=== PATIENT | male | born 1975 | race Caucasian/White ===

== ENCOUNTER 2022-08-21 16:31 | Emergency (ER) | payer OTHER, SELFPAY ==
[2022-08-21] VITALS (10 sets, daily range): BP systolic 136–152; BP diastolic 81–96; PULSE 54–80; RESP 12–21; TEMP 36.4–36.9; O2SAT 96–99; BMI 29.8
--- NOTE | 2022-08-21 16:36 | DI.RAD.S_ITS ---
PROCEDURE: XR CHEST 1V INDICATIONS: chest pain TECHNIQUE: One view of the chest was acquired. COMPARISON: None. FINDINGS: Surgical changes and devices: Left clavicle plate and screw fixation can be seen. Lungs and pleura: An incomplete inspiratory result is noted, causing a crowded appearance to the lung markings. No focal infiltrates are seen. No pneumothorax or significant pleural effusions are seen. Mediastinum: Mediastinal contours appear normal. Heart size is normal. Bones and chest wall: No suspicious bony lesions. Overlying soft tissues appear unremarkable. IMPRESSION: Limited portable chest examination, without a significant cardiopulmonary abnormality identified. Dictated by: Simón Landers M.D. on 08/21/2022 at 16:06 Approved by: Simón Landers M.D. on 08/21/2022 at 16:06
--- NOTE | 2022-08-21 17:08 | ED_ITS ---
HPI - Chest Pain <JUVE Link - Last Filed: 08/21/22 19:39> General Chief Complaint: Chest Pain Stated Complaint: Chest pain, Dizzy Time Seen by Provider: 08/21/22 16:38 Source: patient and family Mode of arrival: Family Vehicle History of Present Illness HPI narrative: This is a 46-year-old male with history of hypertension but does not have a primary care provider presents to the emergency department complaining of left- sided chest pain, shortness of breath when he awoke from a nap today around 1500 and is associated with dizziness. 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 for hypertension, does not take any other medications, has had upper respiratory cough, congestion for the last 5 days. Denies nausea, vomiting, diaphoresis, fever or chills. States that he had breakfast today, has not had much p.o. intake since then, has had at least 5 double bourbon and cokes since this morning. Patient states that he drinks every day, is a former smoker, states that he has had increased heartburn over the last few days and took Pepcid yesterday. States that he had an episode of emesis 5 days ago which was bilious, states this happened again yesterday after a coughing episode. Patient took 162 mg of aspirin prior to arrival. Patient denies any urinary symptoms, abdominal pain, states that he is had heartburn but no other abdominal pain, some mild constipation with last BM 3 days ago. Related Data Previous Rx's Medication Instructions Recorded omeprazole 20 mg tablet,delayed 40 mg PO DAILY #60 tabs 08/21/22 release Allergies Allergy/AdvReac Type Severity Reaction Status Date / Time No Known Drug Allergies Allergy Verified 08/21/22 16:42 Review of Systems <JUVE Link - Last Filed: 08/21/22 19:39> Review of Systems ROS Unobtainable: All systems reviewed & are unremarkable except as noted in HPI and below Patient History <JUVE Link - Last Filed: 08/21/22 19:39> Social History Smoking Status: Never smoker Smoking Status: Never smoker tobacco type: smokeless tobacco alcohol intake frequency: 0-2 drinks per day Substance Use Type: does not use Exam <JUVE Link - Last Filed: 08/21/22 19:39> Narrative Exam Narrative: Reviewed vitals signs and nursing notes. General: cooperative, comfortable, alert, in no acute distress, well groomed HEENT: symmetrical facial expressions, moist mucous membranes, mildly congestion Cardiovascular: Bradycardic rate with regular rhythm, no peripheral edema, warm extremities, S1-S2 without additional sounds, murmur, gallop or rub Respiratory: normal effort, able to speak in complete sentences, without wheezing, stridor, or abnormal breath sounds. No retractions or tachypnea. GI: abdomen soft, nontender to palpation, nondistended, without masses, rebound tenderness or exquisite tenderness with exam. No tenderness over epigastrium or bilateral flanks MSK: moves all extremities, neurovascularly intact, no weakness, normal tone Skin: brisk capillary refill, without pallor or erythema Neuro: normal speech and cognition, A&O x3, ambulatory, clear speech Psych: mental status is grossly normal, congruent mood, normal affect, pleasant and cooperative Initial Vital Signs Initial Vital Signs: Vital Signs Temperature 98.5 F 08/21/22 16:36 Pulse Rate 59 L 08/21/22 16:36 Respiratory Rate 19 08/21/22 16:36 Blood Pressure 152/88 H 08/21/22 16:36 Pulse Oximetry 99 08/21/22 16:36 Oxygen Delivery Method 08/21/22 16:36 <Parviz Zhang DO - Last Filed: 08/22/22 07:57> Initial Vital Signs Initial Vital Signs: Vital Signs Temperature 98.5 F 08/21/22 16:36 Pulse Rate 59 L 08/21/22 16:36 Respiratory Rate 19 08/21/22 16:36 Blood Pressure 152/88 H 08/21/22 16:36 Pulse Oximetry 99 08/21/22 16:36 Oxygen Delivery Method 08/21/22 16:36 Scores <JUVE Link - Last Filed: 08/21/22 19:39> HEART Score Heart Score history: Moderately Suspicious Heart Score EKG: Normal Heart Score Age: 45-64 years old Heart Score risk factors: 1-2 risk factors PERC Score Age greater than or equal to 50 years: No Heart rate greater than or equal to 100 bpm: No Room Air O2 Sat less than 95%: No Unilateral leg swelling: No Recent trauma or surgery: No Hemoptysis: No Prior PE or DVT: No Hormone Use: No Total PERC Score: 0 Wells' Criteria for PE Clinical signs and symptoms of DVT: No PE is #1 Dx or equally likely: No Heart rate > 100: No Immobilization at least 3 days or surg in previous 4 weeks: No History of PE or DVT: No Hemoptysis: No Malignancy w/Treatment within 6 months or palliative: No Wells' PE Score total: 0 <Parviz Zhang DO - Last Filed: 08/22/22 07:57> PERC Score Total PERC Score: 0 Wells' Criteria for PE Wells' PE Score total: 0 Course <JUVE Link - Last Filed: 08/21/22 19:39> Orders Ordered: Discontinued Medications Aspirin (Aspirin 81 Mg Chew Tab) 324 mg PO NOW ONE Stop: 08/21/22 16:37 Last Admin: 08/21/22 17:25 Dose: Not Given Documented By: AT Aspirin (Aspirin Ec 81 Mg Tablet) 162 mg PO NOW ONE Stop: 08/21/22 17:19 Last Admin: 08/21/22 18:29 Dose: 162 mg Documented By: CTS Al Hydrox/Mg Hydrox/Simethicone 20 ml/ Lidocaine HCl 15 ml 0 ml PO NOW ONE Stop: 08/21/22 17:12 Last Admin: 08/21/22 18:30 Dose: 20 ml Documented By: CTS Pantoprazole Sodium (Pantoprazole 40 Mg Vial) 40 mg IV NOW ONE Stop: 08/21/22 17:12 Last Admin: 08/21/22 18:29 Dose: 40 mg Documented By: CTS Vital Signs Vital signs: Vital Signs - 8 hr 08/21/22 16:36 08/21/22 17:27 08/21/22 17:28 Temperature 98.5 F Pulse Rate 59 L 77 Respiratory Rate 19 14 Blood Pressure 152/88 H 149/85 H Pulse Oximetry 99 98 Oxygen Delivery Method Room Air 08/21/22 17:28 08/21/22 17:30 08/21/22 17:30 Temperature Pulse Rate 61 54 L Respiratory Rate 14 14 Blood Pressure 145/88 H Pulse Oximetry 99 98 Oxygen Delivery Method 08/21/22 18:00 08/21/22 18:01 08/21/22 18:01 Temperature Pulse Rate 61 80 Respiratory Rate Blood Pressure 136/96 H Pulse Oximetry 97 98 Oxygen Delivery Method 08/21/22 18:30 08/21/22 18:30 08/21/22 19:00 Temperature Pulse Rate 54 L Respiratory Rate 12 Blood Pressure 143/81 H 144/83 H Pulse Oximetry 98 Oxygen Delivery Method 08/21/22 19:00 Temperature Pulse Rate 59 L Respiratory Rate 21 Blood Pressure Pulse Oximetry 98 Oxygen Delivery Method <Parviz Zhang DO - Last Filed: 08/22/22 07:57> Orders Ordered: Discontinued Medications Aspirin (Aspirin 81 Mg Chew Tab) 324 mg PO NOW ONE Stop: 08/21/22 16:37 Last Admin: 08/21/22 17:25 Dose: Not Given Documented By: AT Aspirin (Aspirin Ec 81 Mg Tablet) 162 mg PO NOW ONE Stop: 08/21/22 17:19 Last Admin: 08/21/22 18:29 Dose: 162 mg Documented By: CTS Al Hydrox/Mg Hydrox/Simethicone 20 ml/ Lidocaine HCl 15 ml 0 ml PO NOW ONE Stop: 08/21/22 17:12 Last Admin: 08/21/22 18:30 Dose: 20 ml Documented By: LIAM Pantoprazole Sodium (Pantoprazole 40 Mg Vial) 40 mg IV NOW ONE Stop: 08/21/22 17:12 Last Admin: 08/21/22 18:29 Dose: 40 mg Documented By: LIAM Vital Signs Vital signs: Vital Signs - 8 hr 08/21/22 16:36 08/21/22 17:27 08/21/22 17:28 Temperature 98.5 F Pulse Rate 59 L 77 Respiratory Rate 19 14 Blood Pressure 152/88 H 149/85 H Pulse Oximetry 99 98 Oxygen Delivery Method Room Air 08/21/22 17:28 08/21/22 17:30 08/21/22 17:30 Temperature Pulse Rate 61 54 L Respiratory Rate 14 14 Blood Pressure 145/88 H Pulse Oximetry 99 98 Oxygen Delivery Method 08/21/22 18:00 08/21/22 18:01 08/21/22 18:01 Temperature Pulse Rate 61 80 Respiratory Rate Blood Pressure 136/96 H Pulse Oximetry 97 98 Oxygen Delivery Method 08/21/22 18:30 08/21/22 18:30 08/21/22 19:00 Temperature Pulse Rate 54 L Respiratory Rate 12 Blood Pressure 143/81 H 144/83 H Pulse Oximetry 98 Oxygen Delivery Method 08/21/22 19:00 Temperature Pulse Rate 59 L Respiratory Rate 21 Blood Pressure Pulse Oximetry 98 Oxygen Delivery Method MDM - Chest Pain <VERA LinkP - Last Filed: 08/21/22 19:39> Lab Data Result diagrams: 08/21/22 16:56 08/21/22 16:56 Labs: Lab Results 08/21/22 08/21/22 08/21/22 Range/Units 16:56 16:56 16:56 WBC 6.6 (4.5-11.0) X10^3/uL RBC 4.46 L (4.5-5.9) X10^6/uL Hgb 14.8 (13.5-17.5) g/dL Hct 42.9 (41-53) % MCV 96.1 (80-100) fL MCH 33.2 (26-34) PG MCHC 34.6 (30-36) % RDW 13.6 (11.6-14.8) % Plt Count 195 (150-400) X10^3/uL Neut % (Auto) 60.9 (50-75) % Lymph % (Auto) 23.9 L (25-40) % [place] % (Auto) 10.9 (3-14) % Eos % (Auto) 2.8 (2-4) % Baso % (Auto) 1.5 (0-2) % Neut # (Auto) 4000 (6805-9115) /uL Lymph # (Auto) 1600 (0674-3718) /uL [place] # (Auto) 700 (0-900) /uL Eos # (Auto) 200 (0-450) /uL Baso # (Auto) 100 (0-100) /uL PT 10.5 (10.1-12.7) SECONDS INR 0.9 (0.9-1.3) APTT 34 (26-36) SECONDS Sodium 137 (137-145) mmol/L Potassium 4.1 (3.4-5.1) mmol/L Chloride 94 L (98-107) mmol/L Carbon Dioxide 30 (22-32) mmol/L BUN 7 L (9-20) mg/dL Creatinine 0.88 (0.66-1.25) mg/dL Estimated GFR > 60 (>60) mL/min BUN/Creatinine Ratio 8.0 (6-22) Glucose 100 (70-100) mg/dL Calcium 10.2 (8.4-10.2) mg/dL Magnesium 1.8 (1.6-2.3) mg/dL Total Bilirubin 0.4 (0.2-1.3) mg/dL AST 109 H (17-59) IU/L ALT 44 (<50) IU/L Alkaline Phosphatase 82 (38-126) U/L Total Creatine Kinase 125 (55-170) U/L CK-MB (CK-2) 1.36 (<2.37) ng/mL CK-MB (CK-2) Rel Index 1.1 L (1.5-5.0) % Troponin I < 0.012 (0.01-0.034) ng/mL Total Protein 8.7 H (6.3-8.2) g/dL Albumin 4.7 (3.5-5.0) g/dL Globulin 4.0 (1.7-4.1) g/dL Albumin/Globulin Ratio 1.2 (1.0-2.8) Lipase 61 (23-300) U/L Urine Color Urine Appearance Urine pH (4.5-8.0) Ur Specific [place] (1.000-1.035) Urine Protein (Negative) Urine Glucose (UA) (Negative) g/dL Urine Ketones (NEGATIVE) Urine Occult Blood (Negative) Urine Nitrate (Negative) Urine Bilirubin (NEGATIVE) Urine Urobilinogen (0.2) E.U./dL Ur Leukocyte Esterase (NEGATIVE) Urine RBC (0-5/HPF) Urine WBC (0-5/HPF) Ur Squamous Epith Cells (0-5/HPF) Urine Bacteria (None) Ur Culture Indicated? SARS-CoV-2 (PCR) (Negative) Influenza A (RT-PCR) (NEGATIVE) Influenza B (RT-PCR) (NEGATIVE) RSV (PCR) (Negative) 08/21/22 08/21/22 08/21/22 Range/Units 16:56 18:45 18:46 WBC (4.5-11.0) X10^3/uL RBC (4.5-5.9) X10^6/uL Hgb (13.5-17.5) g/dL Hct (41-53) % MCV (80-100) fL MCH (26-34) PG MCHC (30-36) % RDW (11.6-14.8) % Plt Count (150-400) X10^3/uL Neut % (Auto) (50-75) % Lymph % (Auto) (25-40) % [place] % (Auto) (3-14) % Eos % (Auto) (2-4) % Baso % (Auto) (0-2) % Neut # (Auto) (3038-4078) /uL Lymph # (Auto) (5870-0941) /uL [place] # (Auto) (0-900) /uL Eos # (Auto) (0-450) /uL Baso # (Auto) (0-100) /uL PT (10.1-12.7) SECONDS INR (0.9-1.3) APTT (26-36) SECONDS Sodium (137-145) mmol/L Potassium (3.4-5.1) mmol/L Chloride (98-107) mmol/L Carbon Dioxide (22-32) mmol/L BUN (9-20) mg/dL Creatinine (0.66-1.25) mg/dL Estimated GFR (>60) mL/min BUN/Creatinine Ratio (6-22) Glucose (70-100) mg/dL Calcium (8.4-10.2) mg/dL Magnesium (1.6-2.3) mg/dL Total Bilirubin (0.2-1.3) mg/dL AST (17-59) IU/L ALT (<50) IU/L Alkaline Phosphatase (38-126) U/L Total Creatine Kinase (55-170) U/L CK-MB (CK-2) (<2.37) ng/mL CK-MB (CK-2) Rel Index (1.5-5.0) % Troponin I < 0.012 (0.01-0.034) ng/mL Total Protein (6.3-8.2) g/dL Albumin (3.5-5.0) g/dL Globulin (1.7-4.1) g/dL Albumin/Globulin Ratio (1.0-2.8) Lipase (23-300) U/L Urine Color Yellow Urine Appearance Clear Urine pH 7.0 (4.5-8.0) Ur Specific [place] <=1.005 (1.000-1.035) Urine Protein Negative (Negative) Urine Glucose (UA) Negative (Negative) g/dL Urine Ketones Negative (NEGATIVE) Urine Occult Blood Negative (Negative) Urine Nitrate Negative (Negative) Urine Bilirubin Negative (NEGATIVE) Urine Urobilinogen 0.2 (0.2) E.U./dL Ur Leukocyte Esterase Negative (NEGATIVE) Urine RBC None seen (0-5/HPF) Urine WBC None seen (0-5/HPF) Ur Squamous Epith Cells 0-1 /hpf (0-5/HPF) Urine Bacteria None seen (None) Ur Culture Indicated? Cult not indicated SARS-CoV-2 (PCR) Negative (Negative) Influenza A (RT-PCR) Flu a negative (NEGATIVE) Influenza B (RT-PCR) Flu b negative (NEGATIVE) RSV (PCR) Negative (Negative) Imaging Data Chest x-ray: Radiologist's Impression: PROCEDURE:? XR CHEST 1V ? INDICATIONS:? chest pain ? TECHNIQUE:? One view of the chest was acquired.? ? COMPARISON:? None. ? FINDINGS:? ? Surgical changes and devices:? Left clavicle plate and screw fixation can be seen. ? Lungs and pleura:? An incomplete inspiratory result is noted, causing a crowded appearance to the lung markings.? No focal infiltrates are seen.? No pneumothorax or significant pleural effusions are seen. ? ? Mediastinum:? Mediastinal contours appear normal.? Heart size is normal.? ? Bones and chest wall:? No suspicious bony lesions.? Overlying soft tissues appear unremarkable.? IMPRESSION:? ? Limited portable chest examination, without a significant cardiopulmonary abnormality identified.? ? ? Dictated by: Simón Landers M.D. on 08/21/2022 at 16:06 ? ? Approved by: Simón Landers M.D. on 08/21/2022 at 16:06 ? ECG Data Interpretation: EKG independently reviewed by myself at 1645 reveals sinus bradycardia at 59 bpm with regular axis and intervals. No STEMI, ST segment changes, arrhythmia, or acute ischemic changes. EKG independently reviewed by myself at 1847 reveals sinus bradycardia at 56 bpm with regular axis and intervals. No STEMI, ST segment changes, arrhythmia, or acute ischemic changes. MDM Narrative Medical decision making narrative: Independent history provided by patient. This is a 46-year-old male with history of hypertension on losartan who presents to the emergency department complaining of left-sided chest pain and shortness of breath that started after he drank a glass of water when he awoke from a nap today around 1500 and is associated with dizziness. 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 for hypertension, does not take any other medications, has had upper respiratory cough, congestion for the last 5 days. Patient states that he drinks proximally 10 bourbon and Cokes a day, states that he had this today and took a nap, when he woke up, his pain started after he drank a glass of water. Patient has a significant family history of cardiac disease, his father, uncle and grandfather all at a young age due to cardiac arrest. Patient's primary care provider, those have a recent history of heartburn and upper respiratory infection. Differential diagnosis considered include: ACS, PE, aortic dissection, myocarditis, PUD/GERD, costochondritis, pericarditis, CHF, STEMI, NSTEMI, unstable angina, viral syndrome, alcoholic cardiomyopathy, alcoholic gastritis, early repolarization epicardial ischemia, left ventricular hypertrophy, Brugada syndrome, pancreatitis. The patient?s EKG, CMP, CBC, and Troponin and Chest XR ordered to evaluate the patient, GI cocktail, Protonix ordered for patient's symptoms with consideration of gastritis and history of heavy alcohol use for ACS. 1830, went to reassess patient to see how he was feeling after his medications and lab work. Found out that he has not gotten any of his medications, his troponin has not been redrawn, and his repeat EKG has not been completed yet. These were timed for 1800. Phoned lab and discussed with nursing to have these repeated. Patient denies any new symptoms. Nurses giving him his medications now. Repeat EKG without signs of ischemia. I have independently interpreted their EKG which shows sinus bradycardia rate of [address] changes, new arrhythmia, no STEMI, T wave inversions. I have independently reviewed the CXR and there is no mediastinal widening or effusion. Repeat EKG without any changes from previous Pertinent lab findings: No leukocytosis or anemia, mild lymphopenia, no evidence of electrolyte abnormality, initial troponin of 0.12, repeat troponin of 0.012, doubt NSTEMI, lipase of 61. Respiratory panel remains pending. HEART score of 2. PERC score of 0, wells PE 0. Exam without evidence of volume overload, so doubt heart failure. EKG without signs of active ischemia. Review of medical records reveals no recent cardiac testing, cardiac cath, or recent chest imaging. On presentation, patient was without diaphoresis, has symmetric pulses, they are without shortness of breath or abnormal breath sounds. No evidence of pneumothorax on chest x-ray or exam. Pain is not described as tearing through to the back, CXR w/ no evidence of widened mediastinum, normal neuro exam, and equal pulses to bilateral upper and lower extremities; aortic dissection seems very unlikely. Neither clinical presentation, exam, or EKG seem c/w pericarditis or myocarditis. No abdominal pain or tenderness. Rest of labs reviewed and are unremarkable. Patient given aspirin here in the ED, as well as Protonix and GI cocktail with some relief of symptoms. Patient agreeable to plan, no further questions. <Parviz Zhang, - Last Filed: 08/22/22 07:57> Lab Data Labs: Lab Results 08/21/22 08/21/22 08/21/22 Range/Units 16:56 16:56 16:56 WBC 6.6 (4.5-11.0) X10^3/uL RBC 4.46 L (4.5-5.9) X10^6/uL Hgb 14.8 (13.5-17.5) g/dL Hct 42.9 (41-53) % MCV 96.1 (80-100) fL MCH 33.2 (26-34) PG MCHC 34.6 (30-36) % RDW 13.6 (11.6-14.8) % Plt Count 195 (150-400) X10^3/uL Neut % (Auto) 60.9 (50-75) % Lymph % (Auto) 23.9 L (25-40) % [place] % (Auto) 10.9 (3-14) % Eos % (Auto) 2.8 (2-4) % Baso % (Auto) 1.5 (0-2) % Neut # (Auto) 4000 (6943-1374) /uL Lymph # (Auto) 1600 (7549-6695) /uL [place] # (Auto) 700 (0-900) /uL Eos # (Auto) 200 (0-450) /uL Baso # (Auto) 100 (0-100) /uL PT 10.5 (10.1-12.7) SECONDS INR 0.9 (0.9-1.3) APTT 34 (26-36) SECONDS Sodium 137 (137-145) mmol/L Potassium 4.1 (3.4-5.1) mmol/L Chloride 94 L (98-107) mmol/L Carbon Dioxide 30 (22-32) mmol/L BUN 7 L (9-20) mg/dL Creatinine 0.88 (0.66-1.25) mg/dL Estimated GFR > 60 (>60) mL/min BUN/Creatinine Ratio 8.0 (6-22) Glucose 100 (70-100) mg/dL Calcium 10.2 (8.4-10.2) mg/dL Magnesium 1.8 (1.6-2.3) mg/dL Total Bilirubin 0.4 (0.2-1.3) mg/dL AST 109 H (17-59) IU/L ALT 44 (<50) IU/L Alkaline Phosphatase 82 (38-126) U/L Total Creatine Kinase 125 (55-170) U/L CK-MB (CK-2) 1.36 (<2.37) ng/mL CK-MB (CK-2) Rel Index 1.1 L (1.5-5.0) % Troponin I < 0.012 (0.01-0.034) ng/mL Total Protein 8.7 H (6.3-8.2) g/dL Albumin 4.7 (3.5-5.0) g/dL Globulin 4.0 (1.7-4.1) g/dL Albumin/Globulin Ratio 1.2 (1.0-2.8) Lipase 61 (23-300) U/L Urine Color Urine Appearance Urine pH (4.5-8.0) Ur Specific [place] (1.000-1.035) Urine Protein (Negative) Urine Glucose (UA) (Negative) g/dL Urine Ketones (NEGATIVE) Urine Occult Blood (Negative) Urine Nitrate (Negative) Urine Bilirubin (NEGATIVE) Urine Urobilinogen (0.2) E.U./dL Ur Leukocyte Esterase (NEGATIVE) Urine RBC (0-5/HPF) Urine WBC (0-5/HPF) Ur Squamous Epith Cells (0-5/HPF) Urine Bacteria (None) Ur Culture Indicated? SARS-CoV-2 (PCR) (Negative) Influenza A (RT-PCR) (NEGATIVE) Influenza B (RT-PCR) (NEGATIVE) RSV (PCR) (Negative) 08/21/22 08/21/22 08/21/22 Range/Units 16:56 18:45 18:46 WBC (4.5-11.0) X10^3/uL RBC (4.5-5.9) X10^6/uL Hgb (13.5-17.5) g/dL Hct (41-53) % MCV (80-100) fL MCH (26-34) PG MCHC (30-36) % RDW (11.6-14.8) % Plt Count (150-400) X10^3/uL Neut % (Auto) (50-75) % Lymph % (Auto) (25-40) % [place] % (Auto) (3-14) % Eos % (Auto) (2-4) % Baso % (Auto) (0-2) % Neut # (Auto) (5924-9528) /uL Lymph # (Auto) (5771-9599) /uL [place] # (Auto) (0-900) /uL Eos # (Auto) (0-450) /uL Baso # (Auto) (0-100) /uL PT (10.1-12.7) SECONDS INR (0.9-1.3) APTT (26-36) SECONDS Sodium (137-145) mmol/L Potassium (3.4-5.1) mmol/L Chloride (98-107) mmol/L Carbon Dioxide (22-32) mmol/L BUN (9-20) mg/dL Creatinine (0.66-1.25) mg/dL Estimated GFR (>60) mL/min BUN/Creatinine Ratio (6-22) Glucose (70-100) mg/dL Calcium (8.4-10.2) mg/dL Magnesium (1.6-2.3) mg/dL Total Bilirubin (0.2-1.3) mg/dL AST (17-59) IU/L ALT (<50) IU/L Alkaline Phosphatase (38-126) U/L Total Creatine Kinase (55-170) U/L CK-MB (CK-2) (<2.37) ng/mL CK-MB (CK-2) Rel Index (1.5-5.0) % Troponin I < 0.012 (0.01-0.034) ng/mL Total Protein (6.3-8.2) g/dL Albumin (3.5-5.0) g/dL Globulin (1.7-4.1) g/dL Albumin/Globulin Ratio (1.0-2.8) Lipase (23-300) U/L Urine Color Yellow Urine Appearance Clear Urine pH 7.0 (4.5-8.0) Ur Specific [place] <=1.005 (1.000-1.035) Urine Protein Negative (Negative) Urine Glucose (UA) Negative (Negative) g/dL Urine Ketones Negative (NEGATIVE) Urine Occult Blood Negative (Negative) Urine Nitrate Negative (Negative) Urine Bilirubin Negative (NEGATIVE) Urine Urobilinogen 0.2 (0.2) E.U./dL Ur Leukocyte Esterase Negative (NEGATIVE) Urine RBC None seen (0-5/HPF) Urine WBC None seen (0-5/HPF) Ur Squamous Epith Cells 0-1 /hpf (0-5/HPF) Urine Bacteria None seen (None) Ur Culture Indicated? Cult not indicated SARS-CoV-2 (PCR) Negative (Negative) Influenza A (RT-PCR) Flu a negative (NEGATIVE) Influenza B (RT-PCR) Flu b negative (NEGATIVE) RSV (PCR) Negative (Negative) Discharge Plan Departure Patient Disposition: Home Clinical Impression: Upper respiratory infection, viral Chest pain Qualifiers: Chest pain type: unspecified Qualified Code(s): R07.9 - Chest pain, unspecified Gastritis Qualifiers: Gastritis type: unspecified gastritis Chronicity: acute Gastritis bleeding: without bleeding Qualified Code(s): K29.00 - Acute gastritis without bleeding Instructions: Heartburn -- Overview, DI for Chest Pain, GERD Diet Activity Restrictions/Additional Instructions: *You have been diagnosed with chest pain without evidence of ischemia. Your lab work appeared that you might be slightly dehydrated. No evidence any dangerous findings, no evidence of organ injury, kidney disease, or infection. Cardiac workup has come back reassuring, the only thing pending is the respiratory panel testing you for COVID, influenza and RSV. We will call you if this is positive. From an upper respiratory viral standpoint, you should start to get better in the next few days. Please use Zyrtec as needed for congestion, stay hydrated, avoid alcohol an empty stomach, try to eat a healthy diet. If you have worsening heartburn, or it is painful every time you eat or drink something, please follow-up with a primary care provider for further evaluation and continue on the omeprazole 40 mg daily. If your left-sided chest pain is persistent, it could be costochondritis, muscle strain, and it could also be cardiac in nature but does not appear to be today. If you have any worsening symptoms, please come back to the emergency department . You have been evaluated in the emergency department (ED) for chest pain and/or other symptoms that could be signs of a heart attack. The initial test results do NOT indicate that you are currently having a heart attack. ? The evaluation included the following: electrocardiogram (ECG or EKG), blood work including heart muscle enzyme tests (e.g. troponin), chest x-ray, and other tests, as appropriate. ? Your personal risk evaluation is based upon the description of symptoms, your medical history, physical examination and test results. Immediately return to the ED if you experience worsening discomfort in your chest, arms, neck, jaw or back, or you develop other concerning symptoms such as shortness of breath or sweatiness. It is best to call ?911?, in case of emergency, rather than driving yourself to the nearest ED. ? Because the unexpected can occur, and the exact cause of your episode of chest discomfort is not yet known with certainty, it is vital that you call either your own doctor or the doctor we recommend by the next day, to arrange follow-up evaluation and possible further testing, ideally within three days. There is a number in bold listed below to establish care with one of the [facility] primary care physicians. ? Please discuss with your doctor ways to reduce the risk of developing heart disease. In general, these recommendations include healthy diet, regular physical activity, tobacco cessation, managing conditions such as high blood pressure, high cholesterol and diabetes. If you develop worsening chest pain, shortness of breath, or symptoms with physical activity, please come back to the emergency department for another evaluation. In the meantime, care for your stomach with acid inhibitors like omeprazole which has been prescribed for you. Please take this every morning, try to avoid heavy alcohol consumption. Please follow-up with the primary care provider for additional testing if your symptoms persist. If you develop worsening symptoms associated with shortness of breath, lightheadedness, or tearing sensation, please come back like you did today for another evaluation. Okay to use Tums or Maalox to help coat your stomach in the meantime *What to do: *Please continue to take your regular medications as directed. [x ] New medication prescriptions sent to your pharmacy: [ [facility]] [ ] New medication written as a paper prescription [ ] No new medications given *Please follow up with your primary care provider in 2-3 days, call for an appointment. Let them know you were seen in the Emergency Department and that we asked that you be seen for follow-up. We will electronically transmit a record of today's note if your PCP is in our system *If you do not have a primary care provider please contact [phone] to establish care with one of [facility] primary care providers. *Return to Emergency Department if you should have any new, worsening, or concerning symptoms, such as [fever greater than 101F, chills, worsening pain, persistent vomiting or other bothersome symptoms]. Prescriptions: New omeprazole 20 mg tablet,delayed release (DR/EC) 40 mg PO DAILY Qty: 60 3RF Stand Alone Forms: Patient Portal/API <Parviz Zhang DO - Last Filed: 08/22/22 07:57> [facility] ED Attending Mikelature Attestation: I was immediately available in the department for consultation. This doc umentation has been reviewed and I agree with assessment and plan. Supervised by Parviz Zhang DO
[2022-08-21 17:32] LABS: Add Manual Diff / Slide Review NO; Basophils Absolute Auto 100 /uL (0-100); Basophils Percent Auto 1.5 % (0-2); Eosinophils Absolute Auto 200 /uL (0-450); Eosinophils Percent Auto 2.8 % (2-4); Hematocrit 42.9 % (41-53); Hemoglobin 14.8 g/dL (13.5-17.5); Lymphocytes Absolute Auto 1600 /uL (1100-4500); Lymphocytes Percent Auto 23.9 % (25-40); Mean Corpuscular HGB Conc 34.6 % (30-36); Mean Corpuscular Hemoglobin 33.2 PG (26-34); Mean Corpuscular Volume 96.1 fL (80-100); Monocytes Absolute Auto 700 /uL (0-900); Monocytes Percent Auto 10.9 % (3-14); Neutrophils Absolute Auto 4000 /uL (1500-7000); Neutrophils Percent Auto 60.9 % (50-75); Platelet Count 195 X10^3/uL (150-400); Red Blood Cell Count 4.46 X10^6/uL (4.5-5.9); Red Cell Distribution Width 13.6 % (11.6-14.8); White Blood Cell Count 6.6 X10^3/uL (4.5-11.0)
[2022-08-21 17:35] LABS: INR 0.9 (0.9-1.3); Prothrombin Time 10.5 SECONDS (10.1-12.7)
[2022-08-21 17:37] LABS: PTT Partial Thromboplastin Tim 34 SECONDS (26-36)
[2022-08-21 17:40] LABS: Alanine Aminotransferase 44 IU/L (<50); Alkaline Phosphatase 82 U/L (38-126); Aspartate Aminotransferase 109 IU/L (17-59); Bilirubin Total 0.4 mg/dL (0.2-1.3); Blood Urea Nitrogen 7 mg/dL (9-20); Calcium 10.2 mg/dL (8.4-10.2); Carbon Dioxide 30 mmol/L (22-32); Chloride 94 mmol/L (98-107); Creatine Kinase 125 U/L (55-170); Estimated Glomerular Filt Rate > 60 mL/min (>60); Glucose 100 mg/dL (70-100); HEMOLYSIS < 15 (0-50); Lipase 61 U/L (23-300); Magnesium 1.8 mg/dL (1.6-2.3); Potassium 4.1 mmol/L (3.4-5.1); Sodium 137 mmol/L (137-145); Total Protein 8.7 g/dL (6.3-8.2)
[2022-08-21 17:51] LABS: Troponin I < 0.012 ng/mL (0.01-0.034)
[2022-08-21 17:54] LABS: CKMB % Relative Index 1.1 % (1.5-5.0); Creatine Kinase MB 1.36 ng/mL (<2.37)
[2022-08-21] MEDS: ASPIRIN EC 81 MG TABLET 162 MG PO (18:29)
[2022-08-21] MEDS: PANTOPRAZOLE 40 MG VIAL IV (18:29)
[2022-08-21] MEDS: MAG HYDROX/ALUMINUM/SIMETH SUS 20 ML, LIDOCAINE VISCOUS 2% 15 ML PO (18:30)
[2022-08-21 18:33] LABS: Appearance Urine UA CLEAR; Bilirubin Urine UA NEGATIVE (NEGATIVE); Color Urine UA YELLOW; Glucose Urine UA NEGATIVE (Negative); Ketones Urine UA NEGATIVE (NEGATIVE); Leukocyte Esterase Urine UA NEGATIVE (NEGATIVE); Nitrite Urine UA NEGATIVE (Negative); Occult Blood Urine UA NEGATIVE (Negative); Protein Urine UA NEGATIVE (Negative); Specific Gravity Urine UA <=1.005 (1.000-1.035); Urobilinogen Urine UA 0.2 E.U./dL (0.2)
[2022-08-21 18:45] LABS: Bacteria Urine None Seen; Culture Indicated Urine Cult Not Indicated; RBC Urine None Seen (0-5/HPF); Squamous Epithelial Cell Urine 0-1 /HPF (0-5/HPF); WBC Urine None Seen (0-5/HPF)
[2022-08-21 19:19] LABS: Troponin I < 0.012 ng/mL (0.01-0.034)
[2022-08-21 19:51] LABS: Influenza A - CEPHEID Flu A NEGATIVE (NEGATIVE); Influenza B - CEPHEID Flu B NEGATIVE (NEGATIVE); Respiratory Syncytial Virus Negative (Negative)
[2022-08-21 19:56] LABS: COVID-19 CEPHEID 4-PLEX PCR Negative (Negative)
[2022-08-21 21:49] LABS: Albumin 4.7 g/dL (3.5-5.0); Albumin Globulin Ratio 1.2 (1.0-2.8)
== END 2022-08-21 19:48 | disposition home or self-care (01) ==
PROVIDERS: Emergency Medicine; Emergency Provider Nurse Practitioner Critical Care Medicine
DX: R07.9 Chest pain, unspecified (principal); K29.00 Acute gastritis without bleeding; J06.9 Acute upper respiratory infection, unspecified; R06.02 Shortness of breath; Z20.822 Contact with and (suspected) exposure to COVID-19
CPT/HCPCS: 0241U; 36415; 71045; 80053; 81001; 82550; 82553; 83690; 83735; 84484; 85025; 85610; 85730; 93005; 96374; 99284; C9113

== ENCOUNTER 2023-09-04 09:31 | Observation (INO) | payer OTHER, SELFPAY ==
[2023-09-04] VITALS (23 sets, daily range): BP systolic 104–155; BP diastolic 60–96; PULSE 71–93; RESP 10–29; TEMP 36.6–37.4; O2SAT 96–100; BMI 29.5
--- NOTE | 2023-09-04 09:47 | DI.CT.S_ITS ---
PROCEDURE: CT HEAD/BRAIN WO CON INDICATIONS: falls, etoh, syncope TECHNIQUE: Noncontrast 4.5 mm thick angled axial sections acquired from the foramen magnum to the vertex, with coronal and sagittal reformats. For radiation dose reduction, the following was used: automated exposure control, adjustment of mA and/or kV according to patient size. COMPARISON: None. FINDINGS: Image quality: Diagnostic. CSF spaces: Basal cisterns are patent. No extra-axial fluid collections. Ventricles are normal in size and shape. Brain: No midline shift. No intracranial masses or hemorrhage. Lemus-white matter interface is normal. Skull and face: Calvarium and visualized facial bones are intact, without suspicious lesions. Sinuses: Near complete opacification of the visualized portions of the right maxillary sinus. IMPRESSION: 1. No acute intracranial abnormality. 2. Right maxillary sinusitis. Dictated by: Sirman Suarez M.D. on 09/04/2023 at 10:57 Approved by: Simran Suarez M.D. on 09/04/2023 at 10:58
--- NOTE | 2023-09-04 09:47 | DI.CT.S_ITS ---
PROCEDURE: CT CERVICAL SPINE WO CON INDICATIONS: falls, etoh, syncope TECHNIQUE: Noncontrast 3 mm thick sections acquired from the skull base to the T4 level. Sagittal and coronal reformats were then constructed. For radiation dose reduction, the following was used: automated exposure control, adjustment of mA and/or kV according to patient size. COMPARISON: None. FINDINGS: Image quality: Excellent. Bones: No fractures or dislocations. Visualized superior ribs are intact. Soft tissues: Prevertebral soft tissues are normal in thickness. No paravertebral hematomas. No apical pneumothoraces. IMPRESSION: No acute fracture. No osseous lesion. If symptoms and/or clinical suspicion for pathology persist, further assessment MRI or bone scan may be helpful for further assessment. Dictated by: Simran Suarez M.D. on 09/04/2023 at 10:58 Approved by: Simran Suarez M.D. on 09/04/2023 at 10:59
--- NOTE | 2023-09-04 09:51 | DI.RAD.S_ITS ---
PROCEDURE: XR RIBS LT MIN 3V W CXR1V INDICATIONS: fall, rib pain, syncope workup TECHNIQUE: 2 views of the ribs were acquired, along with a single view chest. COMPARISON: None. FINDINGS: Surgical changes and devices: ORIF of the left clavicle. Bones and chest wall: No fractures or dislocations. No suspicious bony lesions. Overlying soft tissues appear unremarkable. Lungs and pleura: No pleural effusions or pneumothorax. Lungs appear clear. Mediastinum: Mediastinal contours appear normal. Heart size is normal. IMPRESSION: No acute fracture. No osseous lesion. If symptoms and/or clinical suspicion for pathology persist, further assessment with repeat, or advanced imaging (e.g., CT, MRI, or bone scan) may be helpful for further assessment. Dictated by: Simran Suarez M.D. on 09/04/2023 at 10:45 Approved by: Simran Suarez M.D. on 09/04/2023 at 10:46
[2023-09-04 09:56] LABS: Add Manual Diff / Slide Review NO; Basophils Absolute Auto 0 /uL (0-100); Basophils Percent Auto 0.6 % (0-2); Eosinophils Absolute Auto 100 /uL (0-450); Eosinophils Percent Auto 1.7 % (2-4); Hematocrit 35.9 % (41-53); Hemoglobin 12.5 g/dL (13.5-17.5); Lymphocytes Absolute Auto 1000 /uL (1100-4500); Lymphocytes Percent Auto 18.4 % (25-40); Mean Corpuscular Volume 97.3 fL (80-100); Monocytes Absolute Auto 800 /uL (0-900); Monocytes Percent Auto 14.1 % (3-14); Neutrophils Absolute Auto 3600 /uL (1500-7000); Neutrophils Percent Auto 65.2 % (50-75); Platelet Count 94 X10^3/uL (150-400); Red Blood Cell Count 3.68 X10^6/uL (4.5-5.9); Red Cell Distribution Width 13.9 % (11.6-14.8); White Blood Cell Count 5.4 X10^3/uL (4.5-11.0)
[2023-09-04] MEDS: SODIUM CHLORIDE 0.9% 1,000 ML 1000 ML IV (10:05)
[2023-09-04 10:07] LABS: Prothrombin Time 10.9 SECONDS (9.4-12.5)
[2023-09-04 10:09] LABS: PTT Partial Thromboplastin Tim 34 SECONDS (25.1-36.5)
[2023-09-04 10:12] LABS: Alanine Aminotransferase 31 IU/L (<50); Albumin 4.6 g/dL (3.5-5.0); Albumin Globulin Ratio 1.1 (1.0-2.8); Alkaline Phosphatase 149 U/L (38-126); Aspartate Aminotransferase 335 IU/L (17-59); BUN Creatinine Ratio 8.9 (6-22); Bilirubin Total 2.4 mg/dL (0.2-1.3); Blood Urea Nitrogen 7 mg/dL (9-20); Calcium 10.4 mg/dL (8.4-10.2); Carbon Dioxide 21 mmol/L (22-32); Chloride 92 mmol/L (98-107); Creatine Kinase 165 U/L (55-170); Estimated Glomerular Filt Rate > 60 mL/min (>60); Globulin 4.1 g/dL (1.7-4.1); Glucose 127 mg/dL (70-100); HEMOLYSIS < 15 (0-50); Lipase 187 U/L (23-300); Potassium 3.1 mmol/L (3.4-5.1); Sodium 131 mmol/L (137-145); Total Protein 8.7 g/dL (6.3-8.2)
[2023-09-04 10:23] LABS: NT-proBNP (BNP-Adult 18+) 23 pg/mL (<125); Troponin I < 0.012 ng/mL (0.01-0.034)
--- NOTE | 2023-09-04 12:48 | ED.SYNCOPE ---
HPI - Syncope General Chief Complaint: Syncope Stated Complaint: sent from [facility] fainting fell t-1 hurt ribs Time Seen by Provider: 09/04/23 09:47 Source: patient, family, RN notes reviewed and old records reviewed Mode of arrival: Family Vehicle Limitations: no limitations History of Present Illness HPI narrative: 48-year-old male with history of hypertension, ETOH abuse who presents with complaint of dizziness and syncopal episode. Patient states he had 3 episodes this past week, the most recent was last night. They were all with standing. To times when he was up urinating with 3rd he was blowing his nose felt unsteady for a 2nd and then started to walk and then passed out or fell. Patient states that were brief episodes. He this week hit his left ribs on the side of a metal can when he fell or passed out and has persistent pain. He states otherwise he denies headaches, denies chest pain other than after hitting his ribs. Denies any shortness of breath. Denies any nausea or vomiting. States he has been constipated last bowel movement was Monday. He has been passing gas. States no melena or hematochezia. No urinary symptoms. No incontinence. He is some chronic paresthesias in his feet for the past year related to a ruptured disc at L4-L5. Patient and family note he has had a decreased appetite. No new swelling in extremities. Patient states he stopped his blood pressure medications when he started getting dizzy. He did start to decrease his alcohol intake was drinking 10 or 12 beers daily and decrease to 5 or 6 daily after being told he was developing liver issues. Over the past week or so he has only been having 3 or 4 daily. Did have a beer this morning. He has prior repair of his collar bone. Is following with [facility] for ruptured disc at L4-L5. Denies any drug allergies. Chews a can of tobacco every other day. Current alcohol intake is 3-4 beers daily, no marijuana or other recreational drugs. Primary care is in [place]. He follows with Dr. Lu with [facility]. He is accompanied by his . Related Data Home Medications Medication Instructions Recorded Confirmed losartan 50 mg tablet 50 mg PO BID 09/04/23 09/04/23 Previous Rx's Medication Instructions Recorded omeprazole 20 mg tablet,delayed 40 mg (2 x 20 mg) PO DAILY #60 tabs 08/21/22 release Allergies Allergy/AdvReac Type Severity Reaction Status Date / Time No Known Drug Allergies Allergy Verified 09/04/23 09:49 Review of Systems Review of Systems ROS Unobtainable: All systems reviewed & are unremarkable except as noted in HPI and below Patient History Social History Smoking Status: Never smoker alcohol intake: current Smoking Status: Never smoker tobacco type: smokeless tobacco alcohol intake frequency: 0-2 drinks per day Substance Use Type: does not use Exam Narrative Exam Narrative: GEN: Patient appears in mild distress. HEAD: No evidence of trauma, no raccoon/Marques sign. NECK: Nontender, painless range of motion, trachea midline Positive Nexus criteria, there is no midline line tenderness, distracting injury, altered mental status, neuro deficit, positive for recent EtOH. EYES: PERRLA, EOMI ENT: External inspection normal, trachea is midline, TM's are normal no hemotypanum, Nares are clear, no septal hematoma, no dental or oral injury, airway is normal and with normal occlusion, No bony tenderness RESP: Chest is tender on the left side of the chest, there is small patches of ecchymosis but no hematoma over the left lower lateral ribs. Patient has symmetric movement, breath sounds are normal no crackles, wheezes or rales CVS: Heart sounds are normal, no murmur noted, No JVD. ABG/GI: Nontender, soft, normal bowel sounds, no distention, no organomegaly, pelvic rock is negative NEURO: Oriented AOx3, neuro is grossly intact, sensation and motor is normal all 4 extremities moving, cranial nerves II through XII are intact, GCS is 15 PSYCH: Normal mood and affect SKIN: Intact, warm and dry, no crepitus and without decubitus BACK: No CVA tenderness, no vertebral tenderness, no step-off's, no crepitus EXT: Atraumatic, hips are nontender, no pedal edema, normal color and temperature, normal range of motion of extremities with normal tendon exam, 2+ pulses in all four extremities Initial Vital Signs Initial Vital Signs: Vital Signs Respiratory Rate 15 09/04/23 09:40 Pulse Oximetry 99 09/04/23 09:40 Scores PERC Score Age greater than or equal to 50 years: No Heart rate greater than or equal to 100 bpm: No Room Air O2 Sat less than 95%: No Unilateral leg swelling: No Recent trauma or surgery: No Hemoptysis: No Prior PE or DVT: No Hormone Use: No Total PERC Score: 0 Course Orders Ordered: ED Orders 09/04/23 09:45 Complete Blood Count AUTO DIFF Stat Comprehensive Metabolic Panel Stat Lipase Stat NT-proBNP (BNP-Adult 18+) Stat PTT Partial Thromboplastin Kei Stat Prothrombin Time INR Stat Troponin & CK Cardiac Panel Stat 09/04/23 09:47 CT cervical spine wo con Stat CT head/brain wo con Stat 09/04/23 09:50 EKG-12 Lead Stat 09/04/23 09:51 XR ribs LT min 3V w CXR1V Stat 09/04/23 12:54 EKG-12 Lead Stat 09/04/23 13:07 Trop I [Troponin I] Stat 09/04/23 13:24 CT angio chest PE protocol Stat Acetaminophen (Acetaminophen 325 Mg Tablet) 650 mg PO Q6H PRN PRN Reason: Fever/Mild Pain (1-3) Clonidine HCl (Clonidine 0.1 Mg Tablet) 0.1 mg PO Q4HR PRN PRN Reason: Alcohol Withdrawal Folic Acid (Folic Acid 1 Mg Tablet) 1 mg PO DAILY [facility] Heparin Sodium (Porcine) (Heparin 5,000 Unit/Ml Vial) 5,000 unit SUBCUT BID MEGAN Dextrose/Sodium Chloride (Dextrose 5%-0.9% Ns) 1,000 mls @ 100 mls/hr IV CONT MEGAN Last Admin: 09/04/23 16:34 Dose: 100 mls/hr Documented By: LDV Lorazepam (Lorazepam 2 Mg/Ml Inj) 0 mg IV CIWAPRN PRN; Protocol PRN Reason: Alcohol Withdrawal Lorazepam (Lorazepam 1 Mg Tablet) 0 mg PO CIWAPRN PRN; Protocol PRN Reason: Alcohol Withdrawal Last Admin: 09/04/23 18:07 Dose: 1 mg Documented By: LDV Multivitamins (Multivitamin 1 Tablet) 1 tab PO DAILY MEGAN Naloxone HCl (Naloxone 0.4 Mg/Ml Vial) 0.2 mg IV Q2MIN PRN PRN Reason: Opiate Reversal Oxycodone HCl (Oxycodone Ir 5 Mg Tablet) 5 mg PO Q3H PRN PRN Reason: Pain, Moderate (4-6) Last Admin: 09/04/23 16:34 Dose: 5 mg Documented By: MARTHA Sennosides (Sennosides 8.6 Mg Tablet) 17.2 mg PO BEDTIME MEGAN Thiamine HCl (Thiamine 100 Mg Tablet) 100 mg PO DAILY MEGAN Stop: 09/08/23 09:01 Discontinued Medications Sodium Chloride (Normal Saline 0.9%) 1,000 mls @ 1,000 mls/hr IV BOLUS ONE Stop: 09/04/23 10:46 Last Infusion: 09/04/23 13:02 Dose: Infused Documented By: Admin: 09/04/23 10:05 Dose: 1,000 mls/hr Documented By: MALDONADO Ketorolac Tromethamine (Ketorolac 30 Mg/Ml Vial) 15 mg IV NOW ONE Stop: 09/04/23 13:25 Last Admin: 09/04/23 13:29 Dose: 15 mg Documented By: RAJNI Potassium Chloride (Potassium Chloride 20 Meq Tab) 40 meq PO NOW ONE Stop: 09/04/23 13:25 Last Admin: 09/04/23 13:29 Dose: 40 meq Documented By: RAJNI Potassium Chloride (Potassium Chloride 20 Meq Tab) 40 meq PO NOW ONE Stop: 09/04/23 16:17 Last Admin: 09/04/23 16:34 Dose: 40 meq Documented By: MARTHA Vital Signs Vital signs: Vital Signs - 8 hr 09/04/23 11:00 09/04/23 11:00 09/04/23 11:30 Pulse Rate 80 78 Respiratory Rate 29 H 13 Blood Pressure 109/60 Pulse Oximetry 99 97 09/04/23 11:31 09/04/23 11:31 09/04/23 12:00 Pulse Rate 79 Respiratory Rate 13 Blood Pressure 138/60 117/65 Pulse Oximetry 97 09/04/23 12:00 09/04/23 12:30 09/04/23 12:30 Pulse Rate 90 84 Respiratory Rate 17 19 Blood Pressure 120/81 Pulse Oximetry 100 99 09/04/23 13:00 09/04/23 13:01 09/04/23 13:01 Pulse Rate 87 88 Respiratory Rate 26 H 18 Blood Pressure 126/92 H Pulse Oximetry 100 100 09/04/23 13:30 09/04/23 13:30 09/04/23 13:47 Pulse Rate 71 79 Respiratory Rate 11 L Blood Pressure 138/87 Pulse Oximetry 100 97 09/04/23 13:47 09/04/23 14:00 09/04/23 14:00 Pulse Rate 77 Respiratory Rate 15 Blood Pressure 129/78 126/69 Pulse Oximetry 100 MDM - Syncope Lab Data 09/04/23 09:45 09/04/23 09:45 Labs: Lab Results 09/04/23 09/04/23 Range/Units 09:45 13:07 WBC 5.4 (4.5-11.0) X10^3/uL RBC 3.68 L (4.5-5.9) X10^6/uL Hgb 12.5 L (13.5-17.5) g/dL Hct 35.9 L (41-53) % MCV 97.3 (80-100) fL MCH 34.0 (26-34) PG MCHC 35.0 (30-36) % RDW 13.9 (11.6-14.8) % Plt Count 94 L (150-400) X10^3/uL Neut % (Auto) 65.2 (50-75) % Lymph % (Auto) 18.4 L (25-40) % Ceiba % (Auto) 14.1 H (3-14) % Eos % (Auto) 1.7 L (2-4) % Baso % (Auto) 0.6 (0-2) % Neut # (Auto) 3600 (7972-3274) /uL Lymph # (Auto) 1000 L (1598-4311) /uL Ceiba # (Auto) 800 (0-900) /uL Eos # (Auto) 100 (0-450) /uL Baso # (Auto) 0 (0-100) /uL PT 10.9 (9.4-12.5) SECONDS INR 1.0 (0.9-1.3) APTT 34 (25.1-36.5) SECONDS Sodium 131 L (137-145) mmol/L Potassium 3.1 L (3.4-5.1) mmol/L Chloride 92 L (98-107) mmol/L Carbon Dioxide 21 L (22-32) mmol/L BUN 7 L (9-20) mg/dL Creatinine 0.79 (0.66-1.25) mg/dL Estimated GFR > 60 (>60) mL/min BUN/Creatinine Ratio 8.9 (6-22) Glucose 127 H (70-100) mg/dL Calcium 10.4 H (8.4-10.2) mg/dL Phosphorus 3.6 (2.5-4.5) mg/dL Total Bilirubin 2.4 H (0.2-1.3) mg/dL AST 335 H (17-59) IU/L ALT 31 (<50) IU/L Alkaline Phosphatase 149 H (38-126) U/L Total Creatine Kinase 165 (55-170) U/L Troponin I < 0.012 < 0.012 (0.01-0.034) ng/mL NT-Pro-B Natriuret Pep 23 (<125) pg/mL Total Protein 8.7 H (6.3-8.2) g/dL Albumin 4.6 (3.5-5.0) g/dL Globulin 4.1 (1.7-4.1) g/dL Albumin/Globulin Ratio 1.1 (1.0-2.8) Lipase 187 (23-300) U/L Imaging Data CT scan - head: Radiologist's Impression: Chris Lo??48??M??1975 ? Allergy/Adv: No Known Drug Allergies Close Ribs X-Ray (Signed) Simran Suarez - 09/04/23 Ribs X-Ray (Cancelled) 09/04/[address] (Signed) Simran Suarez - 09/04/[address] (Signed) Simran Suarez - 09/04/23 Chest X-Ray (Signed) Simón Landers - 08/21/22 [place] [address] CT Scan Report Signed Patient: Chris Lo MR#: [id number] : 1975 Acct:[id number] Age/Sex: 48 / M Date of Service: 09/04/23 Loc: ED Accession Number: [id number] Procedure: CT head/brain wo con Ordering Provider: Kina Suarez D.O. PROCEDURE: CT HEAD/BRAIN WO CON INDICATIONS: falls, etoh, syncope TECHNIQUE: Noncontrast 4.5 mm thick angled axial sections acquired from the foramen magnum to the vertex, with coronal and sagittal reformats. For radiation dose reduction, the following was used: automated exposure control, adjustment of mA and/or kV according to patient size. COMPARISON: None. FINDINGS: Image quality: Diagnostic. CSF spaces: Basal cisterns are patent. No extra-axial fluid collections. Ventricles are normal in size and shape. Brain: No midline shift. No intracranial masses or hemorrhage. Lemus-white matter interface is normal. Skull and face: Calvarium and visualized facial bones are intact, without suspicious lesions. Sinuses: Near complete opacification of the visualized portions of the right maxillary sinus. IMPRESSION: 1. No acute intracranial abnormality. 2. Right maxillary sinusitis. Dictated by: Simran Suarez M.D. on 09/04/2023 at 10:57 Approved by: Simran Suarez M.D. on 09/04/2023 at 10:58 CT - cervical spine: Radiologist's Impression: [place] [address] CT Scan Report Signed Patient: Chris Lo MR#: [id number] : 1975 Acct:[id number] Age/Sex: 48 / M Date of Service: 09/04/23 Loc: ED Accession Number: [id number] Procedure: CT cervical spine wo con Ordering Provider: Kina Suarez D.O. PROCEDURE: CT CERVICAL SPINE WO CON INDICATIONS: falls, etoh, syncope TECHNIQUE: Noncontrast 3 mm thick sections acquired from the skull base to the T4 level. Sagittal and coronal reformats were then constructed. For radiation dose reduction, the following was used: automated exposure control, adjustment of mA and/or kV according to patient size. COMPARISON: None. FINDINGS: Image quality: Excellent. Bones: No fractures or dislocations. Visualized superior ribs are intact. Soft tissues: Prevertebral soft tissues are normal in thickness. No paravertebral hematomas. No apical pneumothoraces. IMPRESSION: No acute fracture. No osseous lesion. If symptoms and/or clinical suspicion for pathology persist, further assessment MRI or bone scan may be helpful for further assessment. Dictated by: Simran Suarez M.D. on 09/04/2023 at 10:58 Approved by: Simran Suarez M.D. on 09/04/2023 at 10:59 Chest x-ray: Radiologist's Impression: Close Ribs X-Ray (Signed) Simran Suarez - 09/04/23 Ribs X-Ray (Cancelled) 09/04/[address] (Signed) Simran Suarez - 09/04/[address] (Signed) Simran Suarez - 09/04/23 Chest X-Ray (Signed) Simón Landers - 08/21/[address] [address] XRay Report Signed Patient: Chris Lo MR#: [id number] : 1975 Acct:[id number] Age/Sex: 48 / M Date of Service: 09/04/23 Loc: ED Accession Number: [id number] Procedure: XR ribs LT min 3V w CXR1V Ordering Provider: Kina Suarez D.O. PROCEDURE: XR RIBS LT MIN 3V W CXR1V INDICATIONS: fall, rib pain, syncope workup TECHNIQUE: 2 views of the ribs were acquired, along with a single view chest. COMPARISON: None. FINDINGS: Surgical changes and devices: ORIF of the left clavicle. Bones and chest wall: No fractures or dislocations. No suspicious bony lesions. Overlying soft tissues appear unremarkable. Lungs and pleura: No pleural effusions or pneumothorax. Lungs appear clear. Mediastinum: Mediastinal contours appear normal. Heart size is normal. IMPRESSION: No acute fracture. No osseous lesion. If symptoms and/or clinical suspicion for pathology persist, further assessment with repeat, or advanced imaging (e.g., CT, MRI, or bone scan) may be helpful for further assessment. Dictated by: Simran Suarez M.D. on 09/04/2023 at 10:45 Approved by: Simran Suarez M.D. on 09/04/2023 at 10:46 CT scan - chest: Radiologist's Impression: Close Chest X-Ray (Signed) Simran Suarez - 09/04/23 Echocardiogram Ultrasound (Signed) Joellen Patel - 02/22/23 Chest/Abdomen X-ray (Signed) Riley Peck - 08/29/22 Radiology Report (Cancelled) Nilson Cisse - 01/26/22 Myocardial Perfusion Scan Nuc Med (Signed) Nilson Cisse - 01/26/22 Mammogram Diagnostic (Signed) Jean Heart - 01/14/22 Echocardiogram Ultrasound (Signed) Joellen Patel - 12/03/21 Telemetry Strips 10/29/21 Echocardiogram Ultrasound (Signed) Joellen Patel - 11/10/20 Echocardiogram Ultrasound (Signed) Joellen Patel - 09/23/19 Chest X-Ray (Signed) ReneIsidro - 08/23/19 Chest X-Ray (Signed) JasonAntonella - 09/23/18 Telemetry Strips 09/23/18 Telemetry Strips 08/09/18 Echocardiogram Ultrasound (Signed) Joellen Patel - 08/09/18 Chest X-Ray (Signed) Alexander John - 08/09/18 [address] [address] XRay Report Signed Patient: Nolan Garcia MR#: [id number] : 01/06/1951 Acct:[id number] Age/Sex: 72 / M Date of Service: 09/04/23 Loc: ED Accession Number: [id number] Procedure: XR chest 1V Ordering Provider: Kina Suarez D.O. PROCEDURE: XR CHEST 1V INDICATIONS: chest pain TECHNIQUE: One view of the chest was acquired. COMPARISON: [facility], , XR CHEST 2V, 08/23/2019, 13:55. FINDINGS: Surgical changes and devices: Median sternotomy. Lungs and pleura: Lungs are clear. No pleural effusions or pneumothorax. Mediastinum: Mediastinal contours appear normal. Heart size is enlarged. Bones and chest wall: No suspicious bony lesions. Overlying soft tissues appear unremarkable. IMPRESSION: Cardiomegaly. No acute process. Dictated by: Simran Suarez M.D. on 09/04/2023 at 11:23 Approved by: Simran Suarez M.D. on 09/04/2023 at 11:24 ECG Data Attestation: I personally reviewed and interpreted this ECG as follows: Prior ECG tracings: available for review Interpretation: Sinus rhythm rate 87 OH 138 QRS is 78 QTC 462. Patient does have Q-wave changes with T-wave inversion and depression of the ST segments in lateral leads. No elevation clearly appreciate a questionable in AVR. Patient has prior from 08/21/2022 which does not show this. EKG 2. Shows sinus rhythm rate of 77 OH 138 QRS 88 QTC 459. T-wave changes in lateral leads nose appreciated in other leads. Present on prior EKGs from today as well. MDM Narrative Medical decision making narrative: 48-year-old male with recurrent syncopal episode/dizziness and falls over the past week. Patient and family describe that it typically happens when he is standing and Valsalva such as with micturition or when he blew his nose. He has had 1 prior set of episodes in the past. He denies chest pain or shortness of breath except he hit his chest when he fell or passed out. Labs show hemoglobin of 12.5, was 14 a year ago hematocrit is 35 white count is 5.4 with a platelet count of 94. Monocytes are elevated. Coags are negative. Patient's potassium slightly low at 3.1 with a sodium of 131 otherwise normal renal function and BUN. Glucose is 127. Calcium 10.4. LFTs are elevated at 2.4 with an AST of 335 and ALT of 31 with alk-phos of 149. Patient states he has been told his LFTs are elevated in the past he does not know where they are normally at. Troponins negative. Head CT was negative as well as C-spine, this was obtained patient states he did not think he hit his head but has been drinking as of this morning. Negative for obvious rib fractures on chest x-ray but may have some nondisplaced fractures he is quite tender in the left lower lateral ribs. Patient was given a L of fluids, oral potassium replacement, patient has some chronic back pain so was given dose of Toradol. He does have what appears to be some new EKG changes from prior from a year ago. 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 notes he is still sits around the house quite a bit so does have somewhat elevated risk for blood clot. Discussed with patient family they are agreeable to CT angio. This shows no PE, some esophageal thickening, hepatic steatosis and coronary artery disease. No pericardial effusion. Troponin was also repeated and is negative. No dynamic EKG changes but still present. Patient has recurrent moderate described syncopal episodes in the setting of new EKG change. Patient's troponins are negative. Does show some coronary calcification, but concerning would like to keep patient for echo. Spoke with Dr. Ortiz hospitalist who accepts for observation. Discharge Plan Departure Patient Disposition: Admitted as Observation Clinical Impression: Syncope Admit Date/Time: 09/04/23 14:24 Admit Provider: Kunal Ortiz
--- NOTE | 2023-09-04 13:24 | DI.CT.S_ITS ---
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 3-dimensional maximum intensity projection (MIP) coronal and sagittal reformats were then acquired through the thorax. For radiation dose reduction, the following was used: automated exposure control, adjustment of mA and/or kV according to patient size. COMPARISON: None. FINDINGS: Image quality: Diagnostic. Pulmonary arteries: Pulmonary arteries are normal in size, and demonstrate no intraluminal filling defects to suggest central pulmonary embolism. Lower Neck: No enlarged lymph nodes. Thyroid: No thyroid nodules which require sonographic follow up, per consensus guidelines. Axillae: No enlarged lymph nodes. Chest Wall: Unremarkable. Bones: Unremarkable. Lungs and Pleura: No pneumothorax or pleural effusions. No consolidation or suspicious nodules. Heart: Heart size is normal. Calcification of the coronary vasculature is present. No pericardial effusion. Thoracic Vessels: No aortic aneurysm. Mediastinum and Erin: No enlarged lymph nodes. Esophagus: Thickening of the distal esophagus is present.. Upper Abdomen: Diffusely decreased hepatic density. IMPRESSION: 1. Distal esophageal thickening. Differential considerations include infection, inflammation, and neoplasm. Initial further assessment with endoscopy is recommended. 2. No pulmonary embolus. 3. Hepatic steatosis. 4. Coronary artery disease. Dictated by: Simran Suarez M.D. on 09/04/2023 at 14:05 Approved by: Simran Suarez M.D. on 09/04/2023 at 14:11
[2023-09-04] MEDS: POTASSIUM CHLORIDE 20 MEQ TAB 40 MEQ PO ×2 (13:29→16:34)
[2023-09-04] MEDS: KETOROLAC 30 MG/ML VIAL 15 MG IV (13:29)
[2023-09-04 13:43] LABS: Troponin I < 0.012 ng/mL (0.01-0.034)
--- NOTE | 2023-09-04 15:14 | PM.HP.1 ---
History of Present Illness History of Present Illness Date Patient Seen: 09/04/23 Time Patient Seen: 15:14 Chief complaint: sent from [facility] fainting fell t-1 hurt ribs Narrative: The patient is a 48-year-old male with a history of hypertension and alcohol abuse who presents with 3 days' history of dizziness and feeling lightheaded. His last episode of nearly falling out over was last evening. The patient denies any episodes of complete syncope. He has been somewhat constipated recently and presents for evaluation. In the ED he was found to have a history of alcohol abuse drinking up to 10 drinks a day with a recent cut back to 5 or 6 a day. In addition he was found to have an abnormal ECG. The patient has no known history of CAD and denies any chest pain or palpitations. He had a normal troponin. Last night he had a syncopal episode and fell injuring his left anterior chest. He has pain with moving or pressing on the left anterior lateral lower rib. He denies any pleuritic pain. No nausea. He describes a least 3 complete syncopal episodes in the last week. He has a strong family history of heart disease with his father having of cardiac arrest under the age of [address] scan today ruled out pulmonary embolism but was positive for coronary artery calcifications. He also has distal esophagus thickening which is nonspecific. The patient denies any dysphagia. He does drink on a daily basis but has been cutting back. His doctor noted evidence of hepatitis on liver function tests. He does get shaky if he does not drink. He denies a history of alcohol withdrawal seizures. No clear orthostatic symptoms. He denies chest pain or dyspnea with exertion. He does have chronic lower back pain owing to a chronic lower back injury. [facility] Social History Smoking Status: Never smoker Meds Home Medications and Allergies Home Medications Medication Instructions Recorded Confirmed Type omeprazole 20 mg tablet,delayed 40 mg (2 x 20 mg) PO DAILY #60 tabs 08/21/22 Rx release Allergies Allergy/AdvReac Type Severity Reaction Status Date / Time No Known Drug Allergies Allergy Verified 09/04/23 09:49 Review of Systems Review of Systems Narrative: All else reviewed and otherwise unremarkable except as noted in the history and physical. Exam Vital Signs (past 8 hours): - 09/04/23 09:40 09/04/23 09:41 09/04/23 09:41 Temperature Pulse Rate 93 H Respiratory Rate 15 10 L Blood Pressure 122/73 Pulse Oximetry 99 99 Oxygen Delivery Method 09/04/23 09:44 09/04/23 10:00 09/04/23 10:00 Temperature 98 F Pulse Rate 86 73 Respiratory Rate 16 13 Blood Pressure 122/73 134/88 Pulse Oximetry 99 98 Oxygen Delivery Method Room Air 09/04/23 10:10 09/04/23 10:10 09/04/23 10:30 Temperature Pulse Rate 88 77 Respiratory Rate 17 17 Blood Pressure 104/63 Pulse Oximetry 100 100 Oxygen Delivery Method 09/04/23 10:30 09/04/23 10:40 09/04/23 10:40 Temperature Pulse Rate 77 Respiratory Rate 27 H Blood Pressure 109/60 107/60 Pulse Oximetry 98 Oxygen Delivery Method 09/04/23 11:00 09/04/23 11:00 09/04/23 11:30 Temperature Pulse Rate 80 78 Respiratory Rate 29 H 13 Blood Pressure 109/60 Pulse Oximetry 99 97 Oxygen Delivery Method 09/04/23 11:31 09/04/23 11:31 09/04/23 12:00 Temperature Pulse Rate 79 Respiratory Rate 13 Blood Pressure 138/60 117/65 Pulse Oximetry 97 Oxygen Delivery Method 09/04/23 12:00 09/04/23 12:30 09/04/23 12:30 Temperature Pulse Rate 90 84 Respiratory Rate 17 19 Blood Pressure 120/81 Pulse Oximetry 100 99 Oxygen Delivery Method 09/04/23 13:00 09/04/23 13:01 09/04/23 13:01 Temperature Pulse Rate 87 88 Respiratory Rate 26 H 18 Blood Pressure 126/92 H Pulse Oximetry 100 100 Oxygen Delivery Method 09/04/23 13:30 09/04/23 13:30 09/04/23 13:47 Temperature Pulse Rate 71 79 Respiratory Rate 11 L Blood Pressure 138/87 Pulse Oximetry 100 97 Oxygen Delivery Method 09/04/23 13:47 09/04/23 14:00 09/04/23 14:00 Temperature Pulse Rate 77 Respiratory Rate 15 Blood Pressure 129/78 126/69 Pulse Oximetry 100 Oxygen Delivery Method 09/04/23 14:30 09/04/23 14:30 Temperature Pulse Rate 80 Respiratory Rate 13 Blood Pressure 155/87 H Pulse Oximetry 98 Oxygen Delivery Method Oxygen Delivery Method Room Air Narrative Exam Narrative: NAD, no acute distress. Fluent speech. Normal affect. Atraumatic skull, pupils are equally reactive EOMI, anicteric sclera. Nose and oropharynx are unremarkable no facial droop. Normal oral mucosa. Neck is supple, midline trachea. Lungs are clear with normal rate and effort. Heart is regular without murmur gallop or rub. Abdomen is soft, nontender. Extremities are free of edema. Good pedal and radial pulses. Skin is free of rash or lesions. Joints are not swollen and deformed. Neurologically cranial nerves are intact motor strength is 5/5 in all extremities. He has no tremor. Objective ECG Impression: NSR with lateral TWI. Imaging Chest x-ray: Radiologist's impression: IMPRESSION: No acute fracture. No osseous lesion. If symptoms and/or clinical suspicion for pathology persist, further assessment with repeat, or advanced imaging (e.g., CT, MRI, or bone scan) may be helpful for further assessment. CT scan - chest: Radiologist's impression: 1. Distal esophageal thickening. Differential considerations include infection, inflammation, and neoplasm. Initial further assessment with endoscopy is recommended. 2. No pulmonary embolus. 3. Hepatic steatosis. 4. Coronary artery disease. Labs 09/04/23 09:45 09/04/23 09:45 Labs: Laboratory Results - last 24 hr 09/04/23 09/04/23 09:45 13:07 WBC 5.4 RBC 3.68 L Hgb 12.5 L Hct 35.9 L MCV 97.3 MCH 34.0 MCHC 35.0 RDW 13.9 Plt Count 94 L Neut % (Auto) 65.2 Lymph % (Auto) 18.4 L [place] % (Auto) 14.1 H Eos % (Auto) 1.7 L Baso % (Auto) 0.6 Neut # (Auto) 3600 Lymph # (Auto) 1000 L [place] # (Auto) 800 Eos # (Auto) 100 Baso # (Auto) 0 PT 10.9 INR 1.0 APTT 34 Sodium 131 L Potassium 3.1 L Chloride 92 L Carbon Dioxide 21 L BUN 7 L Creatinine 0.79 Estimated GFR > 60 BUN/Creatinine Ratio 8.9 Glucose 127 H Calcium 10.4 H Total Bilirubin 2.4 H AST 335 H ALT 31 Alkaline Phosphatase 149 H Total Creatine Kinase 165 Troponin I < 0.012 < 0.012 NT-Pro-B Natriuret Pep 23 Total Protein 8.7 H Albumin 4.6 Globulin 4.1 Albumin/Globulin Ratio 1.1 Lipase 187 Assessment & Plan Assessment & Plan narrative: 1. Three complete syncopal episodes, present on admission and active. 2. Abnormal ECG with T-wave inversions, present on admission and active. 3. Hypokalemia, present on admission and active. 4. Esophageal thickening on CT scan, present on admission and active. 5. Alcohol use disorder, present on admission and active. Plan: -telemetry monitoring to rule out arrhythmia. -serial troponins Q 8 hour intervals to rule out ACS. -pharmacologic stress test to rule out obstructive CAD. -[facility] protocol for possible alcohol withdrawal syndrome. Vitamin replacement. -potassium repletion, check phosphorus, check magnesium. Patient is full resuscitation. He is admitted observation status. Expect 1 midnight of medically necessary hospital care. His is his proxy decision maker. Time Spent With Patient Time with patient: 30 to 49 minutes with 50% spent counseling/coordinating care Quality MIPS - Admit I confirm the patient?s Advance Care Plan is present, Code status is documented, Surrogate decision maker is in patient?s record [If Yes, STOP here]: Yes MIPS - Meds 'Current medications' to include all prescriptions, [id number] products, herbals, cannabis/cannabidiol products, and vitamin/mineral/dietary (nutritional) supplements. I have utilized all available resources to obtain, update, or review the patient?s current medications. [If Yes, STOP here]: Yes
[2023-09-04 15:45] LABS: Phosphorous 3.6 mg/dL (2.5-4.5)
[2023-09-04] MEDS: OXYCODONE IR 5 MG TABLET PO ×2 (16:34→20:08)
[2023-09-04] MEDS: DEXTROSE 5%-0.9% NS 1,000 ML 100 ML IV (16:34)
[2023-09-04 16:37] LABS: Troponin I < 0.012 ng/mL (0.01-0.034)
[2023-09-04 16:41] LABS: Magnesium 1.5 mg/dL (1.6-2.3)
[2023-09-04] MEDS: LORazepam 1 MG TABLET PO (18:07)
[2023-09-04] MEDS: ACETAMINOPHEN 325 MG TABLET 650 MG PO (20:07)
[2023-09-04] MEDS: HEPARIN 5,000 UNIT/ML VIAL 5000 UNIT SUBCUT (20:07)
[2023-09-04] MEDS: SENNOSIDES 8.6 MG TABLET 17.2 MG PO (20:08)
[2023-09-05 00:17] LABS: Troponin I < 0.012 ng/mL (0.01-0.034)
[2023-09-05] MEDS: DEXTROSE 5%-0.9% NS 1,000 ML 100 ML IV (01:29)
[2023-09-05] MEDS: ACETAMINOPHEN 325 MG TABLET 650 MG PO ×2 (02:55→08:30)
[2023-09-05] MEDS: OXYCODONE IR 5 MG TABLET PO ×2 (02:55→14:41)
[2023-09-05 03:39] VITALS: BP 132/98; PULSE 78; RESP 19; TEMP 37; O2SAT 97
--- NOTE | 2023-09-05 03:57 | PC.NURSE ---
Addendum entered by Marlin Goldberg R.N. 09/05/23 05:53: Notified MD Perez of low platelet count: 77 and downtrending H&H. Heparin BID discontinued, new orders for protonix placed. 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 CIWA scores ranging between 4-5, primarily d/t tremors. Complaints of lower back pain, oxycodone & tylenol given as ordered. IVF infusing as ordered. NPO at midnight for stress test in morning. Ambulates w/ SBA to the bathroom. SCDs are on. Continuous tele monitoring is on showing normal sinus rhythm. Denies chest pain, N/V, difficulty breathing. at the bedside. Patient is oriented to room & call-light, calls appropriately. Fall precautions in place, will continue to monitor.
[2023-09-05 05:35] LABS: Add Manual Diff / Slide Review NO; Basophils Absolute Auto 0 /uL (0-100); Basophils Percent Auto 0.4 % (0-2); Eosinophils Absolute Auto 100 /uL (0-450); Eosinophils Percent Auto 2.5 % (2-4); Hematocrit 29.7 % (41-53); Hemoglobin 10.2 g/dL (13.5-17.5); Lymphocytes Absolute Auto 600 /uL (1100-4500); Lymphocytes Percent Auto 15.5 % (25-40); Mean Corpuscular HGB Conc 34.3 % (30-36); Mean Corpuscular Hemoglobin 33.4 PG (26-34); Mean Corpuscular Volume 97.2 fL (80-100); Monocytes Absolute Auto 400 /uL (0-900); Monocytes Percent Auto 11.5 % (3-14); Neutrophils Absolute Auto 2700 /uL (1500-7000); Neutrophils Percent Auto 70.1 % (50-75); Platelet Count 77 X10^3/uL (150-400); Red Blood Cell Count 3.06 X10^6/uL (4.5-5.9); Red Cell Distribution Width 14.1 % (11.6-14.8); White Blood Cell Count 3.9 X10^3/uL (4.5-11.0)
[2023-09-05 05:52] LABS: BUN Creatinine Ratio 8.8 (6-22); Blood Urea Nitrogen 6 mg/dL (9-20); Calcium 9.2 mg/dL (8.4-10.2); Carbon Dioxide 26 mmol/L (22-32); Chloride 97 mmol/L (98-107); Estimated Glomerular Filt Rate > 60 mL/min (>60); Glucose 138 mg/dL (70-100); HEMOLYSIS < 15 (0-50); Potassium 3.8 mmol/L (3.4-5.1); Sodium 130 mmol/L (137-145)
[2023-09-05] MEDS: PANTOPRAZOLE DR 40 MG TABLET PO (06:08)
[2023-09-05 07:45] VITALS: BP 118/77; PULSE 77; RESP 16; TEMP 36.8; O2SAT 98
[2023-09-05] MEDS: FOLIC ACID 1 MG TABLET PO (08:30)
[2023-09-05] MEDS: MULTIVITAMIN 1 TABLET 1 TAB PO (08:30)
[2023-09-05] MEDS: THIAMINE 100 MG TABLET PO (08:30)
--- NOTE | 2023-09-05 09:28 | PC.NURSE ---
Addendum entered by Albina Baer R.N. 09/05/23 10:00: Pt has returned to room 214 after completing part 1 of his Stress test. Original Note: Pt to Radiology for stress test via w/c. IV HL
[2023-09-05] MEDS: MAGNESIUM CHLORIDE 64 MG TABLET 128 MG PO (10:17)
[2023-09-05 12:26] VITALS: BP 134/93; PULSE 86; RESP 18; O2SAT 100
[2023-09-05 12:50] VITALS: BP 122/90
[2023-09-05] MEDS: LOSARTAN 25 MG TABLET 12.5 MG PO (12:50)
--- NOTE | 2023-09-05 14:22 | CM.DANOTE ---
Initial DCP Assessment Visit Note Reviewed EMR and team rounds for pt's medical status and initial anticipated d/c needs. Met with pt and spouse at bedside to introduce self and role. Pt found to be alert/oriented, expressing that he's hoping to be d/c'd home soon. will transport home. Payor: Self Pay PCP: U/K Pt is a 48 year-old M who presented to the ED last evening with 3-days of dizziness and lightheadedness, resulting in a GLF and injuring his left-sided rib area. Pt otherwise had no signficant findings in ED and inpt workup. Pending results of his stress test before he can be medically cleared for d/c. No anticipated d/c needs identified at this time. Discharge Planning/Care Management CM Discharge Assessment Start: 09/05/23 13:59 Freq: Status: Active Protocol: Document 09/05/23 13:59 DPL (Rec: 09/05/23 14:01 DPL [id number]) Discharge Planning Assessment Assigned Public Health Teacher MARISOL Ortiz Advance Directives? No History Provided By Patient,Medical Record Has Patient been admitted in last 30 No days? Prior Living Arrangements House Household Members spouse Type of transporation used prior to Drives own vehicle admit Independent with ADL's Yes Is patient alert and oriented? Yes Caregiver for Another No Comment No d/c needs are identified at this time. Barriers to Discharge No Discharge Plan Home Transportation Arrangement Spouse Referrals Initiated None needed Whiteboard Updated in Patient Room with Yes name and ext. # of Public Health Teacher Review Status In Process Please Provide Date Initial DC 09/05/23 Assessment Was Performed
[2023-09-05 16:00] VITALS: BP 138/91; PULSE 88; RESP 16; TEMP 36.7; O2SAT 99
--- NOTE | 2023-09-05 16:49 | P.DS_ITS ---
History of Present Illness History of Present Illness Chief complaint: sent from [facility] fainting fell t-1 hurt ribs Narrative: The patient is a 48-year-old male with a history of hypertension and alcohol abuse who presents with 3 days' history of dizziness and feeling lightheaded. His last episode of nearly falling out over was last evening. The patient denies any episodes of complete syncope. He has been somewhat constipated recently and presents for evaluation. In the ED he was found to have a history of alcohol abuse drinking up to 10 drinks a day with a recent cut back to 5 or 6 a day. In addition he was found to have an abnormal ECG. The patient has no known history of CAD and denies any chest pain or palpitations. He had a normal troponin. Last night he had a syncopal episode and fell injuring his left anterior chest. He has pain with moving or pressing on the left anterior lateral lower rib. He denies any pleuritic pain. No nausea. He describes a least 3 complete syncopal episodes in the last week. He has a strong family history of heart disease with his father having of cardiac arrest under the age of [address] scan today ruled out pulmonary embolism but was positive for coronary artery calcifications. He also has distal esophagus thickening which is nonspecific. The patient denies any dysphagia. He does drink on a daily basis but has been cutting back. His doctor noted evidence of hepatitis on liver function tests. He does get shaky if he does not drink. He denies a history of alcohol withdrawal seizures. No clear orthostatic symptoms. He denies chest pain or dyspnea with exertion. He does have chronic lower back pain owing to a chronic lower back injury. Discharge Providers Provider Date of admission: 09/04/23 14:24 Discharge Date: 09/05/23 Primary care physician: PCP, [facility] Consults: None. Discharge provider: Kunal Ortiz MD Summary Hospital Course Discharge Diagnosis: 1. Three complete syncopal episodes, present on admission and active. 2. Abnormal ECG with T-wave inversions, present on admission and active. 3. Hypokalemia, present on admission and active. 4. Esophageal thickening on CT scan, present on admission and active. 5. Alcohol use disorder, present on admission and active. Hospital Course: He was admitted with concern for multiple syncopal episodes and abnormal ECG with T-wave inversions laterally. He was monitored on telemetry and had no arrhythmia. He also had a stress test which was read as low probability for ischemia. The patient had negative troponins x3 as well. His blood pressures were labile. He has recently decreased his losartan to 12.5 mg daily. At the time of discharge I reviewed all test with him and emphasized the importance of monitoring his blood pressure at home on a regular basis as well as considering stopping all alcohol consumption. Status at Discharge Cognitive/behavioral status at discharge: oriented Functional status at discharge: independent ambulation Overall status at discharge: patient is back to baseline Time Spent with Patient Time spent: Greater than 30 minutes Exam Vital Signs (past 8 hours): - 09/05/23 12:26 09/05/23 12:50 09/05/23 16:00 Temperature 98.1 F Pulse Rate 86 88 Respiratory Rate 18 16 Blood Pressure 134/93 H 122/90 138/91 H Pulse Oximetry 100 99 Oxygen Flow Rate 0 0 Oxygen Delivery Method Room Air Oxygen Flow Rate 0 Narrative Exam Narrative: Alert and oriented, no acute distress. Lungs are clear, normal effort. Heart is regular, no murmur. No leg edema. He has a left lateral chest bruise. Objective Imaging Chest x-ray: Radiologist's impression: No rib fracture. CT scan - chest: Radiologist's impression: 1. Distal esophageal thickening. Differential considerations include infection, inflammation, and neoplasm. Initial further assessment with endoscopy is recommended. 2. No pulmonary embolus. 3. Hepatic steatosis. 4. Coronary artery disease. Nuclear stress test: Radiologist's impression: Low risk study. Labs 09/05/23 05:26 09/05/23 05:26 Labs: Laboratory Results - last 24 hr 09/04/23 09/05/23 23:45 05:26 WBC 3.9 L RBC 3.06 L Hgb 10.2 L Hct 29.7 L MCV 97.2 MCH 33.4 MCHC 34.3 RDW 14.1 Plt Count 77 L Neut % (Auto) 70.1 Lymph % (Auto) 15.5 L [place] % (Auto) 11.5 Eos % (Auto) 2.5 Baso % (Auto) 0.4 Neut # (Auto) 2700 Lymph # (Auto) 600 L [place] # (Auto) 400 Eos # (Auto) 100 Baso # (Auto) 0 Sodium 130 L Potassium 3.8 Chloride 97 L Carbon Dioxide 26 BUN 6 L Creatinine 0.68 Estimated GFR > 60 BUN/Creatinine Ratio 8.8 Glucose 138 H Calcium 9.2 Troponin I < 0.012 [facility] Social History household members: spouse Smoking Status: Never smoker alcohol intake: current Discharge Assessment & Plan Assessment and Plan Assessment: 1. Three complete syncopal episodes, present on admission and active. 2. Abnormal ECG with T-wave inversions, present on admission and active. 3. Hypokalemia, present on admission and active. 4. Esophageal thickening on CT scan, present on admission and active. 5. Alcohol use disorder, present on admission and active. Plan of Treatment: Advised close follow-up with PCP. The patient will also consider further alcohol reduction or cessation. The importance of nutrition and multivitamin as also discussed with him. He will monitor blood pressure 4 times a day and bring a log of these values to his primary care doctor. Discharge Plan Discharge Plan Patient Disposition: Home Provider Discharge Comment: Low risk stress test, normal telemetry. Stable for discharge. Discharge orders & Medications Prescriptions: New losartan 25 mg tablet 12.5 mg PO DAILY Qty: 30 0RF Continued omeprazole 20 mg tablet,delayed release (DR/EC) 40 mg PO DAILY Qty: 60 3RF Discontinued losartan 50 mg tablet 50 mg PO BID Follow up/Referrals: Miscellaneous,DoctorMD [Non-Staff] - Discharge Health Status Multidrug resistant organism: No MDRO Diet/Activity/Treatments Diet: Diet as Tolerated Skin/Wound/Dressing Care Report to your healthcare provider any signs of infection, such as:: increased pain and unusual drainage Visit Report/Discharge Packet Stand Alone Forms: Patient Portal/API Discharge Data Attending Provider: Kunal Ortiz Admit Date/Time: 09/04/23 14:24
--- NOTE | 2023-09-05 17:07 | P.DS_ITS ---
History of Present Illness History of Present Illness Chief complaint: sent from [facility] fainting fell t-1 hurt ribs Narrative: The patient is a 48-year-old male with a history of hypertension and alcohol abuse who presents with 3 days' history of dizziness and feeling lightheaded. His last episode of nearly falling out over was last evening. The patient denies any episodes of complete syncope. He has been somewhat constipated recently and presents for evaluation. In the ED he was found to have a history of alcohol abuse drinking up to 10 drinks a day with a recent cut back to 5 or 6 a day. In addition he was found to have an abnormal ECG. The patient has no known history of CAD and denies any chest pain or palpitations. He had a normal troponin. Last night he had a syncopal episode and fell injuring his left anterior chest. He has pain with moving or pressing on the left anterior lateral lower rib. He denies any pleuritic pain. No nausea. He describes a least 3 complete syncopal episodes in the last week. He has a strong family history of heart disease with his father having of cardiac arrest under the age of [address] scan today ruled out pulmonary embolism but was positive for coronary artery calcifications. He also has distal esophagus thickening which is nonspecific. The patient denies any dysphagia. He does drink on a daily basis but has been cutting back. His doctor noted evidence of hepatitis on liver function tests. He does get shaky if he does not drink. He denies a history of alcohol withdrawal seizures. No clear orthostatic symptoms. He denies chest pain or dyspnea with exertion. He does have chronic lower back pain owing to a chronic lower back injury. Discharge Providers Provider Date of admission: 09/04/23 14:24 Primary care physician: KOFI Hays Discharge provider: Kunal Ortiz MD Exam Vital Signs (past 8 hours): - 09/05/23 12:26 09/05/23 12:50 09/05/23 16:00 Temperature 98.1 F Pulse Rate 86 88 Respiratory Rate 18 16 Blood Pressure 134/93 H 122/90 138/91 H Pulse Oximetry 100 99 Oxygen Flow Rate 0 0 Oxygen Delivery Method Room Air Oxygen Flow Rate 0 Objective Labs 09/05/23 05:26 09/05/23 05:26 Labs: Laboratory Results - last 24 hr 09/04/23 09/05/23 23:45 05:26 WBC 3.9 L RBC 3.06 L Hgb 10.2 L Hct 29.7 L MCV 97.2 MCH 33.4 MCHC 34.3 RDW 14.1 Plt Count 77 L Neut % (Auto) 70.1 Lymph % (Auto) 15.5 L [place] % (Auto) 11.5 Eos % (Auto) 2.5 Baso % (Auto) 0.4 Neut # (Auto) 2700 Lymph # (Auto) 600 L [place] # (Auto) 400 Eos # (Auto) 100 Baso # (Auto) 0 Sodium 130 L Potassium 3.8 Chloride 97 L Carbon Dioxide 26 BUN 6 L Creatinine 0.68 Estimated GFR > 60 BUN/Creatinine Ratio 8.8 Glucose 138 H Calcium 9.2 Troponin I < 0.012 PFSH Social History household members: spouse Smoking Status: Never smoker alcohol intake: current Discharge Assessment & Plan Assessment and Plan Assessment: 1. Three complete syncopal episodes, present on admission and active. 2. Abnormal ECG with T-wave inversions, present on admission and active. 3. Hypokalemia, present on admission and active. 4. Esophageal thickening on CT scan, present on admission and active. 5. Alcohol use disorder, present on admission and active. Plan of Treatment: Advised close follow-up with PCP. The patient will also consider further alcohol reduction or cessation. The importance of nutrition and multivitamin as also discussed with him. He will monitor blood pressure 4 times a day and bring a log of these values to his primary care doctor. Discharge Plan Discharge Plan Patient Disposition: Home Provider Discharge Comment: Low risk stress test, normal telemetry. Stable for discharge. Discharge orders & Medications Prescriptions: New losartan 25 mg tablet 12.5 mg PO DAILY Qty: 30 0RF Continued omeprazole 20 mg tablet,delayed release (DR/EC) 40 mg PO DAILY Qty: 60 3RF Discontinued losartan 50 mg tablet 50 mg PO BID Follow up/Referrals: Miscellaneous,DoctorMD [Non-Staff] - Discharge Health Status Multidrug resistant organism: No MDRO Diet/Activity/Treatments Diet: Diet as Tolerated Skin/Wound/Dressing Care Report to your healthcare provider any signs of infection, such as:: increased pain and unusual drainage Visit Report/Discharge Packet Stand Alone Forms: Patient Portal/API Discharge Data Attending Provider: Kunal Ortiz Admit Date/Time: 09/04/23 14:24
--- NOTE | 2023-09-05 17:46 | PC.NURSE ---
Pt is dressed and ready for discharge home with Spouse. IV and Tele have been removed. Went over d/c instructions with Pt and Spouse-discussed d/c meds, time of last dose, ,reviewed stroke education, reminded Pt to get up slowly from bed or chair to prevent dizziness, encouraged Pt to drink fluids to prevent constipation or dehydration, reminded Pt to try to take and chart his bp at least 4 x daily and bring it to his next appointment with his PCP, reminded Pt to use their new prescription of Losartan because of the dosage change and to follow up as needed. Pt denied further questions and was taken out via w/c by CARD LACER JACQUARD to pov with Spouse and all belongings.
--- NOTE | 2023-09-06 00:07 | DI.NM.S_ITS ---
DATE OF SERVICE: 09/05/2023 PROCEDURE: Pharmacological perfusion study. INDICATIONS: Recurrent syncope. RADIOPHARMACEUTICAL: 27.5 mCi technetium-99m Myoview IV was injected at stress and 8.5 mCi technetium-99m Myoview IV was at rest. One-day protocol. CARDIAC STRESS: The patient underwent IV Lexiscan perfusion study under the supervision of an attending staff using standard intravenous Lexiscan as per protocol. The patient remained hemodynamically stable. Baseline blood pressure 132/100. Baseline rhythm sinus. During stress, no convincing ischemic changes seen. No significant arrhythmias. Had minimal dyspnea. No chest pain. RAW DATA: There is increased subdiaphragmatic activity. Soft tissue shadow seen around the heart as well. Weight is 218 pounds. GATED STUDY: Stress LV ejection fraction 67% without any wall motion abnormalities. Stress end-diastolic volume 98 mL. Lung/heart ratio 0.35, which is within normal limits. TID ratio 1.04, which is within normal limits. MYOCARDIAL PERFUSION SCAN: Stress supine, resting supine and stress prone images were compared to each other. Stress supine and resting supine images revealed moderate-size, mildly decreased perfusion of inferior wall extending into the inferior apex as well as mildly decreased perfusion of basal anterior wall, which got significantly improved during stress prone images, suggestive of most likely tissue attenuation artifact. No convincing ischemia or infarction pattern seen. Summed stress score and rest score reported to be zero. CONCLUSION: I will call this study likely a normal myocardial perfusion study with evidence of tissue attenuation artifact, which got significantly improved during stress prone images. Preserved left ventricular function without any obvious wall motion abnormalities. The patient's weight is 218 pounds. No ischemic electrocardiographic changes. Overall, low-risk perfusion study. Summed stress score and summed rest score reported to be zero. Chris Lo - SHAMAR/levy/ doc#: [id number]/job#: [id number] dd: 09/05/2023 16:18:00 dt: 09/05/2023 23:30:00 DICTATING MD/COPIES TO: Nilson Cisse MD COPIES MNE: CISCO;
== END 2023-09-05 17:50 | disposition home or self-care (01) ==
LOC: ED 14:23 → AC 14:25
PROVIDERS: Admitting Provider Hospitalist; Emergency Provider Emergency Medicine; Visit Provider Hospitalist
DX: R55 Syncope and collapse (principal); R94.31 Abnormal electrocardiogram [ECG] [EKG]; E87.6 Hypokalemia; F10.90 Alcohol use, unspecified, uncomplicated; R07.81 Pleurodynia
CPT/HCPCS: 36415; 70450; 71101; 71275; 72125; 78452; 80048; 80053; 82550; 83690; 83735; 83880; 84100; 84484; 85025; 85610; 85730; 93005; 93017; 96372; 96374; 99284; 99285; G0378; A9502; J1644; J1885; J2785; Q9967

== ENCOUNTER 2023-12-17 11:44 | Emergency (ER) | payer OTHER, SELFPAY ==
[2023-09-04 17:28] VITALS: BMI 29.5
[2023-12-17 11:58] VITALS: BP 91/56; PULSE 68; RESP 18; TEMP 36.6; O2SAT 100; BMI 28.6
--- NOTE | 2023-12-17 12:12 | DI.RAD.S_ITS ---
PROCEDURE: XR CHEST 1V INDICATIONS: chest pain TECHNIQUE: One view of the chest was acquired. COMPARISON: [facility], CR, XR CHEST 1V, 08/21/2022, 16:38. FINDINGS: Surgical changes and devices: Instrumented healed left clavicular fracture Lungs and pleura: Lungs are clear. No pleural effusions or pneumothorax. Mediastinum: Mediastinal contours appear normal. Heart size is normal. Bones and chest wall: No suspicious bony lesions. Overlying soft tissues appear unremarkable. IMPRESSION: No acute cardiopulmonary abnormality is seen. Approved by: Jagdeep Dubose M.D. on 12/17/2023 at 12:56
[2023-12-17 12:25] LABS: Add Manual Diff / Slide Review NO; Basophils Absolute Auto 100 /uL (0-100); Basophils Percent Auto 1.2 % (0-2); Eosinophils Absolute Auto 100 /uL (0-450); Eosinophils Percent Auto 1.5 % (2-4); Hemoglobin 13.3 g/dL (13.5-17.5); Lymphocytes Absolute Auto 700 /uL (1100-4500); Lymphocytes Percent Auto 9.6 % (25-40); Mean Corpuscular HGB Conc 34.1 % (30-36); Mean Corpuscular Hemoglobin 34.2 PG (26-34); Mean Corpuscular Volume 100.1 fL (80-100); Monocytes Absolute Auto 1000 /uL (0-900); Monocytes Percent Auto 14.4 % (3-14); Neutrophils Absolute Auto 5100 /uL (1500-7000); Neutrophils Percent Auto 73.3 % (50-75); Platelet Count 66 X10^3/uL (150-400); Red Blood Cell Count 3.89 X10^6/uL (4.5-5.9); Red Cell Distribution Width 14.2 % (11.6-14.8)
[2023-12-17 12:33] LABS: Prothrombin Time 11.7 SECONDS (9.4-12.5)
[2023-12-17 12:35] LABS: PTT Partial Thromboplastin Tim 42 SECONDS (25.1-36.5)
[2023-12-17] MEDS: SODIUM CHLORIDE 0.9% 1,000 ML 1000 ML IV (12:36)
[2023-12-17 12:38] LABS: Alanine Aminotransferase 47 IU/L (<50); Albumin 4.8 g/dL (3.5-5.0); Albumin Globulin Ratio 1.3 (1.0-2.8); Alkaline Phosphatase 157 U/L (38-126); Aspartate Aminotransferase 270 IU/L (17-59); BUN Creatinine Ratio 7.9 (6-22); Bilirubin Total 2.7 mg/dL (0.2-1.3); Blood Urea Nitrogen 11 mg/dL (9-20); Calcium 9.1 mg/dL (8.4-10.2); Carbon Dioxide 13 mmol/L (22-32); Chloride 95 mmol/L (98-107); Creatine Kinase 363 U/L (55-170); Estimated Glomerular Filt Rate > 60 mL/min (>60); Globulin 3.8 g/dL (1.7-4.1); Glucose 86 mg/dL (70-100); HEMOLYSIS 58 (0-50); Lipase 132 U/L (23-300); Magnesium 1.3 mg/dL (1.6-2.3); Sodium 135 mmol/L (137-145); Total Protein 8.6 g/dL (6.3-8.2)
[2023-12-17 12:39] LABS: Potassium 4.2 mmol/L (3.4-5.1)
[2023-12-17 12:48] LABS: Troponin I < 0.012 ng/mL (0.01-0.034)
--- NOTE | 2023-12-17 13:28 | ED.GENADULT ---
HPI - General Adult General Chief complaint: Syncope Stated complaint: Dizzyness, Low BP, Not eating Time Seen by Provider: 12/17/23 12:26 Source: patient Mode of arrival: Wheelchair History of Present Illness HPI narrative: Patient is a 48-year-old male who is here for evaluation of multiple complaints to include back pain, abdominal pain, low blood pressure, dizziness, sinus infection, potential dental infection, decreased oral intake. He states this morning he got dizzy and lightheaded when he stood up. Denies chest pain or shortness of breath. States that his abdominal pain is not quite pain but more of a bloating sensation. Related Data Previous Rx's Medication Instructions Recorded omeprazole 20 mg tablet,delayed 40 mg (2 x 20 mg) PO DAILY #60 tabs 08/21/22 release losartan 25 mg tablet 12.5 mg (1/2 x 25 mg) PO DAILY #30 09/05/23 tabs Allergies Allergy/AdvReac Type Severity Reaction Status Date / Time No Known Drug Allergies Allergy Verified 12/17/23 12:09 Review of Systems Review of Systems Narrative: See HPI Patient History Social History household members: spouse Smoking Status: Never smoker alcohol intake: current Smoking Status: Never smoker tobacco type: smokeless tobacco alcohol intake frequency: 0-2 drinks per day Substance Use Type: does not use Exam Initial Vital Signs Initial Vital Signs: Vital Signs Temperature 97.9 F 12/17/23 11:58 Pulse Rate 68 12/17/23 11:58 Respiratory Rate 18 12/17/23 11:58 Blood Pressure 91/56 L 12/17/23 11:58 Pulse Oximetry 100 12/17/23 11:58 Oxygen Delivery Method Room Air 12/17/23 11:58 Const General: cooperative, well developed and No ill appearing HENMT Head: normal to inspection and normocephalic Resp Effort & Inspection: normal respiratory effort Auscultation: clear to auscultation bilaterally Cardio Rate: regular rate Rhythm: regular rhythm GI Inspection: normal to inspection and non-distended Palpation: soft, No firm, No guarding and No tender Neuro General: patient alert, patient awake and moves all extremities Extrem General: capillary refill normal Course Orders Ordered: ED Orders 12/17/23 12:12 XR chest 1V Stat EKG-12 Lead Stat 12/17/23 12:13 ETOH [Ethanol (ETOH)] Stat 12/17/23 12:15 Complete Blood Count AUTO DIFF Stat Comprehensive Metabolic Panel Stat Lipase Stat Magnesium Stat PTT Partial Thromboplastin Kei Stat Prothrombin Time INR Stat Troponin & CK Cardiac Panel Stat 12/17/23 13:28 XR abdomen 1V Stat Discontinued Medications Aspirin (Aspirin 81 Mg Chew Tab) 324 mg PO NOW ONE Stop: 12/17/23 12:13 Sodium Chloride (Normal Saline 0.9%) 1,000 mls @ 1,000 mls/hr IV BOLUS ONE Stop: 12/17/23 13:25 Last Infusion: 12/17/23 13:43 Dose: Infused Documented By: Admin: 12/17/23 12:36 Dose: 1,000 mls/hr Documented By: MALDONADO Vital Signs Vital signs: Vital Signs - 8 hr 12/17/23 11:58 Temperature 97.9 F Pulse Rate 68 Respiratory Rate 18 Blood Pressure 91/56 L Pulse Oximetry 100 Oxygen Delivery Method Room Air Medical Decision Making Lab Data Lab results reviewed: Yes I reviewed the patient's lab results. 12/17/23 12:15 12/17/23 12:15 Labs: Lab Results 12/17/23 12/17/23 Range/Units 12:13 12:15 WBC 7.0 (4.5-11.0) X10^3/uL RBC 3.89 L (4.5-5.9) X10^6/uL Hgb 13.3 L (13.5-17.5) g/dL Hct 39.0 L (41-53) % MCV 100.1 H (80-100) fL MCH 34.2 H (26-34) PG MCHC 34.1 (30-36) % RDW 14.2 (11.6-14.8) % Plt Count 66 L (150-400) X10^3/uL Neut % (Auto) 73.3 (50-75) % Lymph % (Auto) 9.6 L (25-40) % Tyrrell % (Auto) 14.4 H (3-14) % Eos % (Auto) 1.5 L (2-4) % Baso % (Auto) 1.2 (0-2) % Neut # (Auto) 5100 (5323-7574) /uL Lymph # (Auto) 700 L (5975-6309) /uL Tyrrell # (Auto) 1000 H (0-900) /uL Eos # (Auto) 100 (0-450) /uL Baso # (Auto) 100 (0-100) /uL PT 11.7 (9.4-12.5) SECONDS INR 1.0 (0.9-1.3) APTT 42 H (25.1-36.5) SECONDS Sodium 135 L (137-145) mmol/L Potassium 4.2 (3.4-5.1) mmol/L Chloride 95 L (98-107) mmol/L Carbon Dioxide 13 L (22-32) mmol/L BUN 11 (9-20) mg/dL Creatinine 1.39 H (0.66-1.25) mg/dL Estimated GFR > 60 (>60) mL/min BUN/Creatinine Ratio 7.9 (6-22) Glucose 86 (70-100) mg/dL Calcium 9.1 (8.4-10.2) mg/dL Magnesium 1.3 L (1.6-2.3) mg/dL Total Bilirubin 2.7 H (0.2-1.3) mg/dL AST 270 H (17-59) IU/L ALT 47 (<50) IU/L Alkaline Phosphatase 157 H (38-126) U/L Total Creatine Kinase 363 H (55-170) U/L Troponin I < 0.012 (0.01-0.034) ng/mL Total Protein 8.6 H (6.3-8.2) g/dL Albumin 4.8 (3.5-5.0) g/dL Globulin 3.8 (1.7-4.1) g/dL Albumin/Globulin Ratio 1.3 (1.0-2.8) Lipase 132 (23-300) U/L Ethyl Alcohol 290 H ( - 10) mg/dL Imaging Data Chest x-ray: Radiologist's Impression: PROCEDURE: XR CHEST 1V INDICATIONS: chest pain TECHNIQUE: One view of the chest was acquired. COMPARISON: [facility], CR, XR CHEST 1V, 08/21/2022, 16:38. FINDINGS: Surgical changes and devices: Instrumented healed left clavicular fracture Lungs and pleura: Lungs are clear. No pleural effusions or pneumothorax. Mediastinum: Mediastinal contours appear normal. Heart size is normal. Bones and chest wall: No suspicious bony lesions. Overlying soft tissues appear unremarkable. IMPRESSION: No acute cardiopulmonary abnormality is seen. Abdominal x-ray: Radiologist's Impression: PROCEDURE: XR ABDOMEN 1V INDICATIONS: abd pain TECHNIQUE: One view of the abdomen acquired. COMPARISON: None. FINDINGS: Surgical changes and devices: None. Bowel: Bowel gas pattern is normal. Soft tissues: No suspicious abdominal calcifications. Visualized solid organ contours appear normal in size. Bones: No suspicious bony lesions. IMPRESSION: No acute abnormality. ECG Data Attestation: I personally reviewed and interpreted this ECG as follows: Interpretation: Sinus rhythm Ventricular rate is 68 Normal axis Normal QRS Normal QTC No ST T wave changes MDM Narrative Medical decision making narrative: Patient does have an elevated alcohol level which I suspect his causing quite a bit of his symptoms today. He was afebrile. His labs are relatively unremarkable. X-ray of his abdomen is unremarkable. EKG is unremarkable. No indication for admission to the hospital. No indication for surgical consultation. Will discharge patient home with instructions to contact his primary doctor for follow-up. Discharge Plan Departure Patient Disposition: Home Clinical Impression: Alcohol intoxication, Lightheadedness Instructions: DI for Dizziness-Nonvertigo Activity Restrictions/Additional Instructions: Your alcohol level today is above the legal limit so no driving for the next 24 hours for in the future if you drink alcohol. Recommend that you contact your primary care doctor for a follow-up. Return to the emergency department for new symptoms. Prescriptions: No Action omeprazole 20 mg tablet,delayed release (DR/EC) 40 mg PO DAILY Qty: 60 3RF losartan 25 mg tablet 12.5 mg PO DAILY Qty: 30 0RF Stand Alone Forms: Patient Portal/API
[2023-12-17 13:44] LABS: Ethanol (ETOH) 290 mg/dL
[2023-12-17 15:09] VITALS: BP 115/69; PULSE 87; RESP 25; O2SAT 100
== END 2023-12-17 15:11 | disposition home or self-care (01) ==
PROVIDERS: Emergency Provider Emergency Medicine
DX: F10.129 Alcohol abuse with intoxication, unspecified (principal); R42 Dizziness and giddiness; Y90.8 Blood alcohol level of 240 mg/100 ml or more; R10.9 Unspecified abdominal pain
CPT/HCPCS: 71045; 74018; 80053; 80320; 82550; 83690; 83735; 84484; 85025; 85610; 85730; 93005; 93010; 99283; 99284

== ENCOUNTER 2024-01-09 09:51 | Emergency (ER) | payer OTHER, SELFPAY ==
[2023-09-04 17:28] VITALS: BMI 29.5
[2024-01-09] VITALS (99 sets, daily range): BP systolic 76–112; BP diastolic 42–77; PULSE 66–85; RESP 12–39; TEMP 33.9–36.1; O2SAT 88–100; BMI 31.7
[2024-01-09 10:10] LABS: Add Manual Diff / Slide Review NO; Basophils Absolute Auto 100 /uL (0-100); Basophils Percent Auto 0.4 % (0-2); Eosinophils Absolute Auto 200 /uL (0-450); Eosinophils Percent Auto 1.2 % (2-4); Hematocrit 30.1 % (41-53); Hemoglobin 10.7 g/dL (13.5-17.5); Lymphocytes Absolute Auto 800 /uL (1100-4500); Lymphocytes Percent Auto 4.6 % (25-40); Mean Corpuscular HGB Conc 35.4 % (30-36); Mean Corpuscular Hemoglobin 34.7 PG (26-34); Mean Corpuscular Volume 98.1 fL (80-100); Monocytes Absolute Auto 500 /uL (0-900); Monocytes Percent Auto 3.1 % (3-14); Neutrophils Absolute Auto 14900 /uL (1500-7000); Neutrophils Percent Auto 90.7 % (50-75); Platelet Count 203 X10^3/uL (150-400); Red Blood Cell Count 3.07 X10^6/uL (4.5-5.9); Red Cell Distribution Width 17.9 % (11.6-14.8); White Blood Cell Count 16.4 X10^3/uL (4.5-11.0)
[2024-01-09 10:29] LABS: INR 3.1 (0.9-1.3); Prothrombin Time 36.3 SECONDS (9.4-12.5)
[2024-01-09 10:32] LABS: Ammonia (NH3) 74 umol/L (9-30)
[2024-01-09 10:33] LABS: Alanine Aminotransferase 35 IU/L (<50); Albumin 2.8 g/dL (3.5-5.0); Albumin Globulin Ratio 0.8 (1.0-2.8); Alkaline Phosphatase 313 U/L (38-126); Aspartate Aminotransferase 312 IU/L (17-59); Blood Urea Nitrogen 67 mg/dL (9-20); Calcium 7.3 mg/dL (8.4-10.2); Carbon Dioxide 14 mmol/L (22-32); Globulin 3.4 g/dL (1.7-4.1); Glucose 154 mg/dL (70-100); Lipase 564 U/L (23-300); Potassium 4.7 mmol/L (3.4-5.1); Total Protein 6.2 g/dL (6.3-8.2)
--- NOTE | 2024-01-09 10:51 | PC.NURSE ---
Pt jaundice in skin; yellow sclera. Pt slightly altered. Abdomen slightly rigid. No edema in feet, no swelling in feet. Pt family states pt stomach larger than usual
[2024-01-09 10:53] LABS: Bilirubin Total 28.4 mg/dL (0.2-1.3)
[2024-01-09 10:54] LABS: Chloride 73 mmol/L (98-107); Sodium 105 mmol/L (137-145)
--- NOTE | 2024-01-09 10:58 | ED.GENADULT ---
HPI - General Adult General Chief complaint: Altered Mental Status Stated complaint: Liver Failure, Jaundice Time Seen by Provider: 01/09/24 09:52 Source: EMS Mode of arrival: EMS History of Present Illness HPI narrative: 48-year-old with 2 weeks' duration yellow color, reported history of chronic alcohol use, unclear whether or not he has cirrhosis diagnosis in the past, apparently had labs sent as an outpatient showing hepatitis A, no imaging of the right upper quadrant or liver, noted by family to be confused since yesterday, no injury fall trauma known. Related Data Previous Rx's Medication Instructions Recorded omeprazole 20 mg tablet,delayed 40 mg (2 x 20 mg) PO DAILY #60 tabs 08/21/22 release losartan 25 mg tablet 12.5 mg (1/2 x 25 mg) PO DAILY #30 09/05/23 tabs Allergies Allergy/AdvReac Type Severity Reaction Status Date / Time No Known Drug Allergies Allergy Verified 01/09/24 10:00 Review of Systems Review of Systems Narrative: As per HPI Patient History Social History household members: spouse Smoking Status: Never smoker alcohol intake: current Smoking Status: Never smoker tobacco type: smokeless tobacco alcohol intake frequency: 0-2 drinks per day Substance Use Type: does not use Exam Narrative Exam Narrative: GENERAL: Well-developed patient, in mild distress. Markedly bronze in color HEAD: Atraumatic. Normocephalic. EYES: Pupils equal round and reactive. Extraocular motions intact. No injection or drainage. Scleral icterus present ENT: Nose without bleeding, purulent drainage. Throat without erythema, tonsillar hypertrophy or exudate. Airway patent. NECK: Trachea midline. Non tender CARDIOVASCULAR: Regular rate and rhythm without murmurs, gallops, or rubs. RESPIRATORY: Clear to auscultation. Breath sounds equal bilaterally. No wheezes, rales, or rhonchi. GASTROINTESTINAL: Abdomen soft, non-tender, nondistended. EXTREMITIES: No edema or joint tenderness. BACK: Nontender without deformity or crepitance. No flank tenderness. NEURO: AOx3. Did follow commands, no facial droop, pupils equal round reactive to light, I could not get him to comment about visual field deficits, did not participate with [id number] testing. Moved upper extremities to command without obvious weakness, moved lower extremities to command without obvious weakness. No tremulousness SKIN: No rash or erythema of visible areas. Diffuse skin jaundice noted Initial Vital Signs Initial Vital Signs: Vital Signs Temperature 97 F L 01/09/24 09:57 Pulse Rate 74 01/09/24 09:57 Respiratory Rate 12 01/09/24 09:57 Blood Pressure 105/57 L 01/09/24 09:57 Pulse Oximetry 100 01/09/24 09:57 Oxygen Delivery Method Room Air 01/09/24 09:57 Procedures Central Line Placement Right Femoral: Time of procedure: 11:58 Time Out Performed: No Patient Placed on Monitor/Pulse Ox: Yes MD Prep: mask, gown and gloves Central Line Prep: Povidone-Iodine 1% Local Anesthetic: lidocaine 2% Amount of anesthesia used (mL): 8 Ultrasound Used for Placement: Yes Central Line Lumen Inserted: triple Post Procedure: sutured in place, good blood return, all ports aspirated, flushed, capped and line stabilization device Complications: none Additional Comments: Verbal consent for procedure with patient and family, right femoral access, patient had some movement, manual restrained during procedure by sugarcane research technician. IV Versed 2 mg before procedure, well tolerated, ports flushed easily, no x-ray indicated femoral line. Course Orders Ordered: ED Orders 01/09/24 12:05 Blood Culture Stat 01/09/24 12:15 Ictotest Urine Stat Urinalysis and Microscopic Stat Urine Culture Stat urine tox [Urine Drug Screen, Rapid] Stat 01/09/24 13:23 EKG-12 Lead Stat 01/09/24 14:03 CMP [Comprehensive Metabolic Panel] Stat Discontinued Medications Sodium Chloride (Normal Saline 0.9%) 1,000 mls @ 1,000 mls/hr IV BOLUS ONE Stop: 01/09/24 12:59 Last Infusion: 01/09/24 13:20 Dose: Infused Documented By: Admin: 01/09/24 12:05 Dose: 1,000 mls/hr Documented By: NO Ceftriaxone Sodium 2,000 mg/ (Sodium Chloride) 100 mls @ 200 mls/hr IV NOW ONE Stop: 01/09/24 12:03 Last Infusion: 01/09/24 13:53 Dose: Infused Documented By: Admin: 01/09/24 13:00 Dose: 200 mls/hr Documented By: NO Sodium Chloride (Hypertonic Saline 3%) 100 mls @ 600 mls/hr IV NOW ONE Stop: 01/09/24 14:40 Last Infusion: 01/09/24 15:30 Dose: Infused Documented By: Admin: 01/09/24 15:09 Dose: 600 mls/hr Documented By: NO NOREPINEPHRINE BITARTRATE/D5W (Levophed) 4 mg in 250 mls @ 39.803 mls/hr IV TITRATE MEGAN; Protocol Last Admin: 01/09/24 18:22 Dose: Not Given Documented By: NO Lactulose (Lactulose 20 Gm/30 Ml Solution) 20 gm PO NOW ONE Stop: 01/09/24 16:22 Last Admin: 01/09/24 17:24 Dose: 20 gm Documented By: NO Lidocaine/Epinephrine (Lidocaine 2% W/Epi Inj 10 Ml Vial) 20 ml INJ INTRA-OP ONE Stop: 01/09/24 11:23 Last Admin: 01/09/24 12:04 Dose: 20 ml Documented By: NO Midazolam HCl (Midazolam 2 Mg/2 Ml Vial) 2 mg IV NOW ONE Stop: 01/09/24 11:17 Last Admin: 01/09/24 11:19 Dose: 2 mg Documented By: NO Midazolam HCl (Midazolam 5 Mg/Ml Vial) 1 mg IV NOW ONE Stop: 01/09/24 16:09 Last Admin: 01/09/24 16:14 Dose: 1 mg Documented By: NO Midazolam HCl (Midazolam 5 Mg/Ml Vial) 1 mg IV NOW ONE Stop: 01/09/24 17:01 Last Admin: 01/09/24 17:26 Dose: Not Given Documented By: NO Vital Signs Vital signs: Vital Signs - 8 hr 01/09/24 12:30 01/09/24 12:30 01/09/24 12:35 Temperature 94.8 F L 95.0 F L Pulse Rate 69 67 Respiratory Rate 19 Blood Pressure 96/77 Pulse Oximetry 99 Oxygen Delivery Method Oxygen Flow Rate 01/09/24 12:36 01/09/24 12:36 01/09/24 12:38 Temperature 95.0 F L Pulse Rate 69 Respiratory Rate 17 Blood Pressure 88/50 L 87/48 L Pulse Oximetry 100 Oxygen Delivery Method Nasal Cannula Oxygen Flow Rate 2 01/09/24 12:38 01/09/24 12:39 01/09/24 12:39 Temperature 95.2 F L 95.2 F L Pulse Rate 66 67 Respiratory Rate 14 16 Blood Pressure 92/55 L Pulse Oximetry 99 98 Oxygen Delivery Method Oxygen Flow Rate 01/09/24 12:40 01/09/24 12:45 01/09/24 12:50 Temperature 95.2 F L 95.4 F L 95.4 F L Pulse Rate 67 68 68 Respiratory Rate 20 30 H 14 Blood Pressure Pulse Oximetry 99 99 98 Oxygen Delivery Method Oxygen Flow Rate 01/09/24 12:51 01/09/24 12:51 01/09/24 12:55 Temperature 95.4 F L Pulse Rate 68 Respiratory Rate 15 Blood Pressure 96/50 L 90/53 L Pulse Oximetry 99 Oxygen Delivery Method Oxygen Flow Rate 01/09/24 12:55 01/09/24 13:56 01/09/24 13:59 Temperature 95.5 F L Pulse Rate 67 71 Respiratory Rate 14 19 Blood Pressure 91/48 L Pulse Oximetry 99 99 Oxygen Delivery Method Oxygen Flow Rate 01/09/24 13:59 01/09/24 14:00 01/09/24 14:00 Temperature 96.1 F L Pulse Rate 72 71 Respiratory Rate 15 19 Blood Pressure 97/51 L Pulse Oximetry 98 98 Oxygen Delivery Method Oxygen Flow Rate 01/09/24 14:05 01/09/24 14:06 01/09/24 14:06 Temperature 96.3 F L 96.3 F L Pulse Rate 76 82 Respiratory Rate Blood Pressure 109/55 L Pulse Oximetry 97 98 Oxygen Delivery Method Oxygen Flow Rate 01/09/24 14:10 01/09/24 14:10 01/09/24 14:15 Temperature Pulse Rate 74 72 Respiratory Rate 21 Blood Pressure 95/52 L Pulse Oximetry 98 98 Oxygen Delivery Method Oxygen Flow Rate 01/09/24 14:16 01/09/24 14:16 01/09/24 14:20 Temperature 96.4 F L Pulse Rate 72 72 Respiratory Rate 23 29 H Blood Pressure 92/54 L Pulse Oximetry 99 98 Oxygen Delivery Method Oxygen Flow Rate 01/09/24 14:20 01/09/24 14:25 01/09/24 14:25 Temperature Pulse Rate 77 Respiratory Rate 27 H Blood Pressure 94/48 L 103/50 L Pulse Oximetry 99 Oxygen Delivery Method Oxygen Flow Rate 01/09/24 14:30 01/09/24 14:31 01/09/24 14:31 Temperature Pulse Rate 77 76 Respiratory Rate 23 26 H Blood Pressure 96/51 L Pulse Oximetry 98 99 Oxygen Delivery Method Oxygen Flow Rate 01/09/24 14:35 01/09/24 14:35 01/09/24 14:40 Temperature Pulse Rate 73 Respiratory Rate 15 Blood Pressure 100/47 L 87/51 L Pulse Oximetry 99 Oxygen Delivery Method Oxygen Flow Rate 01/09/24 14:40 01/09/24 14:45 01/09/24 14:45 Temperature 96.6 F L Pulse Rate 72 74 Respiratory Rate 19 20 Blood Pressure 90/49 L Pulse Oximetry 99 98 Oxygen Delivery Method Oxygen Flow Rate 01/09/24 14:50 01/09/24 14:50 01/09/24 14:55 Temperature Pulse Rate 75 Respiratory Rate 19 Blood Pressure 90/54 L 89/51 L Pulse Oximetry 99 Oxygen Delivery Method Oxygen Flow Rate 01/09/24 14:55 01/09/24 15:00 01/09/24 15:00 Temperature Pulse Rate 74 75 Respiratory Rate 19 19 Blood Pressure 91/51 L Pulse Oximetry 98 98 Oxygen Delivery Method Oxygen Flow Rate 01/09/24 15:05 01/09/24 15:06 01/09/24 15:06 Temperature 96.8 F L Pulse Rate 74 78 Respiratory Rate 20 Blood Pressure 86/50 L Pulse Oximetry 98 98 Oxygen Delivery Method Oxygen Flow Rate 01/09/24 15:10 01/09/24 15:10 01/09/24 15:15 Temperature Pulse Rate 77 Respiratory Rate Blood Pressure 91/54 L 85/49 L Pulse Oximetry 98 Oxygen Delivery Method Oxygen Flow Rate 01/09/24 15:15 01/09/24 15:20 01/09/24 15:25 Temperature 96.8 F L Pulse Rate 76 77 77 Respiratory Rate 27 H 30 H 29 H Blood Pressure Pulse Oximetry 98 97 98 Oxygen Delivery Method Oxygen Flow Rate 01/09/24 15:26 01/09/24 15:26 01/09/24 15:30 Temperature 96.8 F L Pulse Rate 76 76 Respiratory Rate 22 Blood Pressure 98/57 L Pulse Oximetry 99 99 Oxygen Delivery Method Oxygen Flow Rate 01/09/24 15:30 01/09/24 15:35 01/09/24 15:35 Temperature 96.6 F L Pulse Rate 76 Respiratory Rate 22 Blood Pressure 100/49 L 102/51 L Pulse Oximetry 99 Oxygen Delivery Method Oxygen Flow Rate 01/09/24 15:40 01/09/24 15:40 01/09/24 15:45 Temperature Pulse Rate 75 Respiratory Rate 31 H Blood Pressure 98/50 L 97/54 L Pulse Oximetry 99 Oxygen Delivery Method Oxygen Flow Rate 01/09/24 15:45 01/09/24 15:50 01/09/24 15:50 Temperature 96.6 F L Pulse Rate 73 75 Respiratory Rate 24 22 Blood Pressure 96/53 L Pulse Oximetry 99 100 Oxygen Delivery Method Oxygen Flow Rate 01/09/24 15:55 01/09/24 15:56 01/09/24 15:56 Temperature Pulse Rate 73 74 Respiratory Rate Blood Pressure 101/54 L Pulse Oximetry 99 99 Oxygen Delivery Method Oxygen Flow Rate 01/09/24 16:00 01/09/24 16:00 01/09/24 16:05 Temperature 96.4 F L Pulse Rate 74 76 Respiratory Rate 20 Blood Pressure 110/51 L Pulse Oximetry 99 98 Oxygen Delivery Method Oxygen Flow Rate 01/09/24 16:06 01/09/24 16:06 01/09/24 16:10 Temperature 96.6 F L Pulse Rate 85 75 Respiratory Rate Blood Pressure 109/59 L Pulse Oximetry 98 Oxygen Delivery Method Oxygen Flow Rate 01/09/24 16:11 01/09/24 16:11 01/09/24 16:15 Temperature Pulse Rate 76 Respiratory Rate 22 Blood Pressure 90/72 100/52 L Pulse Oximetry 100 Oxygen Delivery Method Oxygen Flow Rate 01/09/24 16:15 01/09/24 16:20 01/09/24 16:20 Temperature 96.4 F L Pulse Rate 72 69 Respiratory Rate 21 18 Blood Pressure 96/51 L Pulse Oximetry 100 100 Oxygen Delivery Method Oxygen Flow Rate 01/09/24 16:25 01/09/24 16:25 01/09/24 16:30 Temperature Pulse Rate 69 Respiratory Rate 16 Blood Pressure 105/52 L 98/51 L Pulse Oximetry 100 Oxygen Delivery Method Oxygen Flow Rate 01/09/24 16:30 01/09/24 16:35 01/09/24 16:36 Temperature Pulse Rate 72 74 Respiratory Rate 21 16 Blood Pressure 76/42 L Pulse Oximetry 100 100 Oxygen Delivery Method Oxygen Flow Rate 01/09/24 16:36 01/09/24 16:40 01/09/24 16:40 Temperature Pulse Rate 74 72 Respiratory Rate 16 Blood Pressure 86/51 L Pulse Oximetry 100 100 Oxygen Delivery Method Oxygen Flow Rate 01/09/24 16:45 01/09/24 16:45 01/09/24 16:49 Temperature Pulse Rate 74 Respiratory Rate 16 Blood Pressure 112/59 L 110/57 L Pulse Oximetry 100 Oxygen Delivery Method Oxygen Flow Rate 01/09/24 16:49 01/09/24 16:50 01/09/24 16:50 Temperature 96.4 F L Pulse Rate 72 71 Respiratory Rate 18 19 Blood Pressure 110/57 L Pulse Oximetry 100 100 Oxygen Delivery Method Oxygen Flow Rate 01/09/24 16:55 01/09/24 16:55 01/09/24 17:00 Temperature Pulse Rate 73 75 Respiratory Rate 21 22 Blood Pressure 104/54 L Pulse Oximetry 100 98 Oxygen Delivery Method Oxygen Flow Rate 01/09/24 17:00 01/09/24 17:05 01/09/24 17:10 Temperature Pulse Rate 74 Respiratory Rate 15 Blood Pressure 104/52 L 104/51 L Pulse Oximetry 100 Oxygen Delivery Method Oxygen Flow Rate 01/09/24 17:10 01/09/24 17:15 01/09/24 17:15 Temperature Pulse Rate 74 74 Respiratory Rate 18 21 Blood Pressure 96/55 L Pulse Oximetry 100 99 Oxygen Delivery Method Oxygen Flow Rate 01/09/24 17:20 01/09/24 17:21 01/09/24 17:21 Temperature 96.4 F L 96.4 F L Pulse Rate 76 74 Respiratory Rate 18 Blood Pressure 94/52 L Pulse Oximetry 98 99 Oxygen Delivery Method Oxygen Flow Rate 01/09/24 17:25 01/09/24 17:25 01/09/24 17:30 Temperature Pulse Rate 73 72 Respiratory Rate 22 Blood Pressure 98/52 L Pulse Oximetry 99 100 Oxygen Delivery Method Oxygen Flow Rate 01/09/24 17:30 01/09/24 17:32 01/09/24 17:32 Temperature Pulse Rate 72 Respiratory Rate Blood Pressure 85/46 L 90/54 L Pulse Oximetry 99 Oxygen Delivery Method Oxygen Flow Rate 01/09/24 17:35 01/09/24 17:35 01/09/24 17:40 Temperature Pulse Rate 72 Respiratory Rate Blood Pressure 87/52 L 86/52 L Pulse Oximetry 98 Oxygen Delivery Method Oxygen Flow Rate 01/09/24 17:40 01/09/24 17:45 01/09/24 17:45 Temperature 96.4 F L Pulse Rate 73 71 Respiratory Rate Blood Pressure 87/54 L Pulse Oximetry 99 99 Oxygen Delivery Method Oxygen Flow Rate 01/09/24 17:50 01/09/24 17:50 01/09/24 17:55 Temperature Pulse Rate 73 Respiratory Rate 24 Blood Pressure 89/52 L 87/51 L Pulse Oximetry 99 Oxygen Delivery Method Oxygen Flow Rate 01/09/24 17:55 01/09/24 18:00 01/09/24 18:00 Temperature Pulse Rate 72 73 Respiratory Rate 24 Blood Pressure 85/49 L Pulse Oximetry 99 99 Oxygen Delivery Method Oxygen Flow Rate 01/09/24 18:05 01/09/24 18:06 01/09/24 18:06 Temperature Pulse Rate 73 74 Respiratory Rate Blood Pressure 79/46 L Pulse Oximetry 99 Oxygen Delivery Method Oxygen Flow Rate 01/09/24 18:10 01/09/24 18:11 01/09/24 18:11 Temperature Pulse Rate 72 73 Respiratory Rate Blood Pressure 94/52 L Pulse Oximetry 98 98 Oxygen Delivery Method Oxygen Flow Rate Medical Decision Making Lab Data Lab results reviewed: Yes I reviewed the patient's lab results. 01/09/24 10:00 01/09/24 14:03 Labs: Lab Results 01/09/24 01/09/24 01/09/24 Range/Units 10:00 12:15 12:15 WBC 16.4 H (4.5-11.0) X10^3/uL RBC 3.07 L (4.5-5.9) X10^6/uL Hgb 10.7 L (13.5-17.5) g/dL Hct 30.1 L (41-53) % MCV 98.1 (80-100) fL MCH 34.7 H (26-34) PG MCHC 35.4 (30-36) % RDW 17.9 H (11.6-14.8) % Plt Count 203 (150-400) X10^3/uL Neut % (Auto) 90.7 H (50-75) % Lymph % (Auto) 4.6 L (25-40) % [place] % (Auto) 3.1 (3-14) % Eos % (Auto) 1.2 L (2-4) % Baso % (Auto) 0.4 (0-2) % Neut # (Auto) 25104 H (9957-7699) /uL Lymph # (Auto) 800 L (7787-2702) /uL [place] # (Auto) 500 (0-900) /uL Eos # (Auto) 200 (0-450) /uL Baso # (Auto) 100 (0-100) /uL PT 36.3 H (9.4-12.5) SECONDS INR 3.1 H (0.9-1.3) Sodium 105 L* (137-145) mmol/L Potassium 4.7 (3.4-5.1) mmol/L Chloride 73 L* (98-107) mmol/L Carbon Dioxide 14 L (22-32) mmol/L BUN 67 H (9-20) mg/dL Creatinine 5.87 H (0.66-1.25) mg/dL Estimated GFR 11 L (>60) mL/min BUN/Creatinine Ratio 11.4 (6-22) Glucose 154 H (70-100) mg/dL Lactate 2.6 H (0.7-2.1) mmol/L Calcium 7.3 L (8.4-10.2) mg/dL Total Bilirubin 28.4 H (0.2-1.3) mg/dL AST 312 H (17-59) IU/L ALT 35 (<50) IU/L Alkaline Phosphatase 313 H (38-126) U/L Ammonia 74 H (9-30) umol/L Total Protein 6.2 L (6.3-8.2) g/dL Albumin 2.8 L (3.5-5.0) g/dL Globulin 3.4 (1.7-4.1) g/dL Albumin/Globulin Ratio 0.8 L (1.0-2.8) Lipase 564 H (23-300) U/L Urine Color Brown Urine Appearance Sl cloudy Urine pH TNP Normal Ur Specific [place] TNP Urine Protein TNP Urine Glucose (UA) TNP Urine Ketones TNP Urine Occult Blood TNP Urine Nitrate TNP Urine Bilirubin TNP Ur Bilirubin Confirm Positive H (Negative) Urine Urobilinogen TNP Ur Leukocyte Esterase TNP Urine RBC 0-1/hpf (0-5/HPF) Urine WBC 0-1/hpf (0-5/HPF) Ur Squamous Epith Cells 1-5 /hpf (0-5/HPF) Ur Transition Epith Cell 0-1/hpf (0-5/HPF) Amorphous Sediment 3+ Urine Bacteria Occasional (0-1) (None) WBC Casts 0-1/lpf (None) Ur Culture Indicated? Specimen cultured Vol Urine Centrifuged 10ml (spun) U Opiates 300ng/mL cut Negative (Negative) Ur Oxycodone Screen Negative (Negative) Urine Methadone Screen Negative (Negative) Ur Barbiturates Screen Negative (Negative) U Tricyclic Antidepress Negative (Negative) Ur Phencyclidine Scrn Negative (Negative) Ur Amphetamines Screen Negative (Negative) U Methamphetamines Scrn Negative (Negative) Ur MDMA Scrn (Ecstasy) Negative (Negative) U Benzodiazepines Scrn Negative (Negative) Urine Cocaine Screen Negative (Negative) U Marijuana (THC) Screen Negative (Negative) Urine Specific [place] Normal (Normal) Ethyl Alcohol < 10 ( - 10) mg/dL Ur Creatinine Normal (Normal) 01/09/24 01/09/24 Range/Units 13:06 14:03 WBC (4.5-11.0) X10^3/uL RBC (4.5-5.9) X10^6/uL Hgb (13.5-17.5) g/dL Hct (41-53) % MCV (80-100) fL MCH (26-34) PG MCHC (30-36) % RDW (11.6-14.8) % Plt Count (150-400) X10^3/uL Neut % (Auto) (50-75) % Lymph % (Auto) (25-40) % [place] % (Auto) (3-14) % Eos % (Auto) (2-4) % Baso % (Auto) (0-2) % Neut # (Auto) (0876-7486) /uL Lymph # (Auto) (6150-4851) /uL [place] # (Auto) (0-900) /uL Eos # (Auto) (0-450) /uL Baso # (Auto) (0-100) /uL PT (9.4-12.5) SECONDS INR (0.9-1.3) Sodium 106 L* (137-145) mmol/L Potassium 4.7 (3.4-5.1) mmol/L Chloride 77 L (98-107) mmol/L Carbon Dioxide 14 L (22-32) mmol/L BUN 67 H (9-20) mg/dL Creatinine 6.28 H (0.66-1.25) mg/dL Estimated GFR 10 L (>60) mL/min BUN/Creatinine Ratio 10.7 (6-22) Glucose 77 (70-100) mg/dL Lactate 2.1 (0.7-2.1) mmol/L Calcium 6.9 L (8.4-10.2) mg/dL Total Bilirubin 27.1 H (0.2-1.3) mg/dL AST 282 H (17-59) IU/L ALT 33 (<50) IU/L Alkaline Phosphatase 283 H (38-126) U/L Ammonia (9-30) umol/L Total Protein 5.8 L (6.3-8.2) g/dL Albumin 2.7 L (3.5-5.0) g/dL Globulin 3.1 (1.7-4.1) g/dL Albumin/Globulin Ratio 0.9 L (1.0-2.8) Lipase (23-300) U/L Urine Color Urine Appearance Urine pH Ur Specific [place] Urine Protein Urine Glucose (UA) Urine Ketones Urine Occult Blood Urine Nitrate Urine Bilirubin Ur Bilirubin Confirm (Negative) Urine Urobilinogen Ur Leukocyte Esterase Urine RBC (0-5/HPF) Urine WBC (0-5/HPF) Ur Squamous Epith Cells (0-5/HPF) Ur Transition Epith Cell (0-5/HPF) Amorphous Sediment Urine Bacteria (None) WBC Casts (None) Ur Culture Indicated? Vol Urine Centrifuged U Opiates 300ng/mL cut (Negative) Ur Oxycodone Screen (Negative) Urine Methadone Screen (Negative) Ur Barbiturates Screen (Negative) U Tricyclic Antidepress (Negative) Ur Phencyclidine Scrn (Negative) Ur Amphetamines Screen (Negative) U Methamphetamines Scrn (Negative) Ur MDMA Scrn (Ecstasy) (Negative) U Benzodiazepines Scrn (Negative) Urine Cocaine Screen (Negative) U Marijuana (THC) Screen (Negative) Urine Specific [place] (Normal) Ethyl Alcohol ( - 10) mg/dL Ur Creatinine (Normal) Imaging Data CT scan - head: Radiologist's Impression: [address] [address] [address] Scan Report Signed Patient: Chris Lo MR#: [id number] : 1975 Acct:[id number] Age/Sex: 48 / M Date of Service: 01/09/24 Loc: ED Accession Number: [id number] Procedure: CT head/brain wo con Ordering Provider: Andres Padilla MD PROCEDURE: CT HEAD/BRAIN WO CON INDICATIONS: altered MSE TECHNIQUE: Noncontrast 4.5 mm thick angled axial sections acquired from the foramen magnum to the vertex, with coronal and sagittal reformats. For radiation dose reduction, the following was used: automated exposure control, adjustment of mA and/or kV according to patient size. COMPARISON: [facility], CT, CT HEAD/BRAIN WO CON, 09/04/2023, 10:36. FINDINGS: Image quality: Degraded by patient motion artifact. CSF spaces: Basal cisterns are patent. No extra-axial fluid collections. Ventricles are normal in size and shape. Brain: No midline shift. No intracranial masses or hemorrhage. Lemus-white matter interface is normal. Skull and face: Calvarium and visualized facial bones are intact, without suspicious lesions. Sinuses: Visualized sinuses and mastoids are clear. IMPRESSION: No acute intracranial disease process within limitations related to patient motion artifact. Dictated by: Kimberlee Lockett MD, PhD on 01/09/2024 at 12:51 Approved by: Kimberlee Lockett MD, PhD on 01/09/2024 at 12:52 CT scan - abdomen/pelvis: Radiologist's Impression: [place] [address] CT Scan Report Signed Patient: Chris Lo MR#: [id number] : 1975 Acct:[id number] Age/Sex: 48 / M Date of Service: 01/09/24 Loc: ED Accession Number: [id number] Procedure: CT abdomen pelvis wo con Ordering Provider: Andres Padilla MD PROCEDURE: CT ABDOMEN PELVIS WO CON INDICATIONS: jaundice, ?cause, inc WBC TECHNIQUE: Axial sections were acquired from the lung bases to the pubic symphysis. Coronal and sagittal reformats were performed. For radiation dose reduction, the following was used: automated exposure control, adjustment of mA and/or kV according to patient size. COMPARISON: None. FINDINGS: Image quality: Diagnostic sensitivity study limited secondary to lack of IV contrast. Lower Chest: No significant findings. URINARY: Right Kidney: No stones or hydronephrosis. Right Ureter: No hydroureter. Left Kidney: No stones or hydronephrosis. Left Ureter: No hydroureter. Bladder: Normal wall thickness. No stones. ABDOMEN: Liver: No contour-deforming solid mass. Diffuse fatty infiltration of the liver. Liver has mildly nodular margins concerning for appendix cirrhosis. Gallbladder: Gallbladder is contracted and contains radiodense material. Biliary ducts: No biliary dilation. Pancreas: No ductal dilation. Spleen: Size is within normal limits. Adrenal Glands: No adrenal nodules. Stomach and Bowel: Normal colonic caliber, without significant wall thickening. No evidence of appendicitis. Peritoneum: Small volume of scattered abdominal pelvic low-density ascites. No free air. Ventral Wall: No hernia. Abdominal Nodes: No enlarged retroperitoneal or mesenteric lymph nodes. Vessels: Aorta and inferior vena cava are normal in size. Scattered atherosclerotic calcifications involving the abdominal and pelvic vasculature. PELVIS: Pelvic Organs: Urinary bladder decompressed by Oates catheter. Pelvic Nodes: Unremarkable. Miscellaneous: No inguinal hernias are seen. Right common femoral vein central venous catheter. Bones: Spine degenerative disc disease and facet arthropathy. IMPRESSION: Diagnostic sensitivity study limited secondary to lack of IV contrast. Hepatic steatosis. Liver has mildly nodular margins concerning for hepatic cirrhosis. Please correlate with clinical and laboratory data. Small volume of low-density abdominal pelvic ascites. Contracted gallbladder which contains radiodense material likely represent multiple tiny stones or milk of calcium. If there is clinical concern for biliary disease consider abdominal ultrasound for additional evaluation. Dictated by: Kimberlee Lockett MD, PhD on 01/09/2024 at 12:52 Approved by: Kimberlee Lockett MD, PhD on 01/09/2024 at 13:00 ECG Data Interpretation: Normal sinus rhythm with rate of 67, no obvious ST segment elevation or depression changes. NV interval 168, QRS 108, QTC 513. MDM Narrative Medical decision making narrative: 48-year-old male with history of alcohol use, reported recent diagnosis hepatitis A, jaundice yellow coloration skin for the last 2 weeks, confused today. Labs sent including ammonia level. Screening electrolytes showed sodium level 105, with normal glucose. Serum CO2 decreased. Blood culture sent, lactate sent, ceftriaxone 2 g IV empiric after blood and urine requested. Initial soft blood pressure 88 systolic, IV fluid bolus, we will place central line for possible hypertonic saline, though no seizure activity thus far, also for pressors to use if needed. Verbal consent for central line. Right femoral access central venous catheter triple-lumen placed, see separate procedure note, tolerated well, ports flushed well. CT head, CT abdomen and pelvis imaging requested 1230, CT imaging still to be performed, anticipate transfer hepatorenal failure and severe hyponatremia, for higher levels of care including Nephrology and hepatology 1300, CT head no acute changes. CT abdomen and pelvis shows some hepatic cirrhosis changes, small volume ascites, no obstructive changes to biliary system obvious, contracted gallbladder noted. See radiology reports. 1305, discussed findings and lab abnormalities with patient and family, recommend transfer to higher level of care with Nephrology and/or hepatology services, likely tertiary center, they are agreeable 1325, faxed records received from lab reports from [facility]. Laboratory studies at that time showed T bili 12.8 with direct component bilirubin 9.57, SGOT 378, SGPT 40, alkaline phosphatase 296, at that time creatinine was 0.89 with BUN 8. Sodium at that time was 126, hepatitis serologies were sent as well, and noted to be positive for hepatitis A antibody, hepatitis antibody IgM negative, hepatitis C nonreactive, hepatitis-B surface antigen negative, HIV nonreactive. INR then was 1.7 then noted. These test results were run from [facility] in [place]. 1345, Call back from [facility], intake nurse, relayed clinical information, await call back. 1425, case discussed with sales service coordinator [facility] Dr. Robins, can use saline, could consider 250 cc 3% sodium bolus then recheck next 2-3 hours, goal increase sodium 8-10 mEq over 1st 24 hours, await call back from hepatology to see if they we will consult Repeat sodium 106 little change, we will go ahead and start 100mL bolus of 3% hypertonic saline, recheck BMP in the next 2-3 hours. Case discussed with Dr. Burnham hepatology [facility] [place], she will consult, admit to intesivist service, await call back 1450, case discussed with [facility] [place] hospitalist Dr. Alejo, accepts patient for admission. Weight listed, no immediate bed available. 1503, case discussed with [facility] broomcorn scraper Dr. Juarez, who believes patient would be better served at a transplant capable facility. We will await call back from [facility] [place] system 1540, case discussed with [facility] broomcorn scraper Dr. Clemons, who feels the patient does not meet their strict criteria for liver transplantation, suggests [facility] [place]. We will request [facility] to update [facility] [place] and Kathleen vieyra we are going to regarding their abilities to accept patient for transfer 1620, case discussed with [facility] sales service coordinator Dr. Aparicio, is aware that Dr. Juarez Hepatology been consulted, accepts patient for transfer. He would prefer we give a dose of oral lactulose now, ammonia level 74 noted, also he would prefer if we start Levophed pressor support Critical Care Time Critical Care Time Critical Care Time: Yes Total Critical Care Time: 75 Attestation: The high probability of a clinically significant, sudden or life threatening deterioration of the [gastrointestinal, hepatic, cardiopulmonary] system(s) required my full and direct attention, intervention and personal management. The aggregate critical care time was [75] minutes. This time is in addition to time spent performing reported procedures but includes the following: [x] Data Review and interpretation [x] Patient assessment and monitoring of vital signs [x] Documentation [x] Medication orders and management Discharge Plan Departure Patient Disposition: [facility] Clinical Impression: Hepatorenal failure, Jaundice, History of alcohol abuse, Hyponatremia, Hepatic encephalopathy Prescriptions: No Action omeprazole 20 mg tablet,delayed release (DR/EC) 40 mg PO DAILY Qty: 60 3RF losartan 25 mg tablet 12.5 mg PO DAILY Qty: 30 0RF
[2024-01-09 11:01] LABS: Ethanol (ETOH) < 10 mg/dL
--- NOTE | 2024-01-09 11:06 | DI.CT.S_ITS ---
PROCEDURE: CT ABDOMEN PELVIS WO CON INDICATIONS: jaundice, ?cause, inc WBC TECHNIQUE: Axial sections were acquired from the lung bases to the pubic symphysis. Coronal and sagittal reformats were performed. For radiation dose reduction, the following was used: automated exposure control, adjustment of mA and/or kV according to patient size. COMPARISON: None. FINDINGS: Image quality: Diagnostic sensitivity study limited secondary to lack of IV contrast. Lower Chest: No significant findings. URINARY: Right Kidney: No stones or hydronephrosis. Right Ureter: No hydroureter. Left Kidney: No stones or hydronephrosis. Left Ureter: No hydroureter. Bladder: Normal wall thickness. No stones. ABDOMEN: Liver: No contour-deforming solid mass. Diffuse fatty infiltration of the liver. Liver has mildly nodular margins concerning for appendix cirrhosis. Gallbladder: Gallbladder is contracted and contains radiodense material. Biliary ducts: No biliary dilation. Pancreas: No ductal dilation. Spleen: Size is within normal limits. Adrenal Glands: No adrenal nodules. Stomach and Bowel: Normal colonic caliber, without significant wall thickening. No evidence of appendicitis. Peritoneum: Small volume of scattered abdominal pelvic low-density ascites. No free air. Ventral Wall: No hernia. Abdominal Nodes: No enlarged retroperitoneal or mesenteric lymph nodes. Vessels: Aorta and inferior vena cava are normal in size. Scattered atherosclerotic calcifications involving the abdominal and pelvic vasculature. PELVIS: Pelvic Organs: Urinary bladder decompressed by Oates catheter. Pelvic Nodes: Unremarkable. Miscellaneous: No inguinal hernias are seen. Right common femoral vein central venous catheter. Bones: Spine degenerative disc disease and facet arthropathy. IMPRESSION: Diagnostic sensitivity study limited secondary to lack of IV contrast. Hepatic steatosis. Liver has mildly nodular margins concerning for hepatic cirrhosis. Please correlate with clinical and laboratory data. Small volume of low-density abdominal pelvic ascites. Contracted gallbladder which contains radiodense material likely represent multiple tiny stones or milk of calcium. If there is clinical concern for biliary disease consider abdominal ultrasound for additional evaluation. Dictated by: Kimberlee Lockett MD, PhD on 01/09/2024 at 12:52 Approved by: Kimberlee Lockett MD, PhD on 01/09/2024 at 13:00
[2024-01-09 11:15] LABS: BUN Creatinine Ratio 11.4 (6-22); Estimated Glomerular Filt Rate 11 mL/min (>60)
[2024-01-09] MEDS: MIDAZOLAM 2 MG/2 ML VIAL IV (11:19)
[2024-01-09 11:42] LABS: Lactate (Lactic Acid) 2.6 mmol/L (0.7-2.1)
[2024-01-09] MEDS: LIDOCAINE 2% W/EPI INJ 10 ML VIAL 20 ML INJ (12:04)
[2024-01-09] MEDS: SODIUM CHLORIDE 0.9% 1,000 ML 1000 ML IV (12:05)
[2024-01-09 12:58] LABS: Reflexed Lactate in 2 Hours Y
[2024-01-09] MEDS: cefTRIAXone 2,000 MG in SODIUM CHLORIDE 0.9% 100 ML 200 MG IV (13:00)
[2024-01-09 13:15] LABS: UR Morphine/Opiate cutoff 300 Negative (Negative); Ur Creatinine Normal (Normal); Ur Specific Gravity Normal (Normal); Urine Amphetamines Negative (Negative); Urine Barbiturates Negative (Negative); Urine Benzodiazepines Negative (Negative); Urine Cocaine Negative (Negative); Urine MDMA Negative (Negative); Urine Methadone Negative (Negative); Urine Methamphetamines Negative (Negative); Urine Oxycodone Negative (Negative); Urine Phencyclidine Negative (Negative); Urine Tetrahydrocannabinol Negative (Negative); Urine Tricyclic Antidepressant Negative (Negative); Urine pH Normal (Normal)
[2024-01-09 13:16] LABS: Appearance Urine UA SL CLOUDY
[2024-01-09 13:17] LABS: Color Urine UA BROWN; Ictotest Urine Positive (Negative)
[2024-01-09 13:22] LABS: Amorphous Sediment Urine 3+; Bacteria Urine Occasional (0-1); Culture Indicated Urine Specimen Cultured; RBC Urine 0-1/HPF (0-5/HPF); Squamous Epithelial Cell Urine 1-5 /HPF (0-5/HPF); Transitional Epi Cells Urine 0-1/HPF (0-5/HPF); Urine Volume 10mL (spun); WBC Urine 0-1/HPF (0-5/HPF); White Blood Cell Casts Urine 0-1/LPF
[2024-01-09 13:24] LABS: Lactate 2HR (Lactic Acid Rflx) 2.1 mmol/L (0.7-2.1)
--- NOTE | 2024-01-09 13:26 | PC.NURSE ---
Addendum entered by Charlene Del Rosario CNA 01/09/24 17:16: [facility] ETA @1745 Addendum entered by Charlene Del Rosario [facility] 01/09/24 17:06: [facility] Vie[facility]ra accepts patient @ 1630 under . Addendum entered by ANNY GormanA 01/09/24 13:49: [facility] transfer Request @ 1350 Addendum entered by ANNY GormanA 01/09/24 13:36: called back at [address] Padilla Addendum entered by Charlene Del Rosario [facility] 01/09/24 13:31: Spoke with Salma at [facility] transfer center @ 1331 to request transfer Addendum entered by ANNY GormanA 01/09/24 13:30: [facility] transfer requested, spoke with May @ 1327 Original Note: Face sheet and images pushed to [facility], [place], , [place], and [facility] @ 1320
[2024-01-09 14:19] LABS: Alanine Aminotransferase 33 IU/L (<50); Albumin 2.7 g/dL (3.5-5.0); Albumin Globulin Ratio 0.9 (1.0-2.8); Alkaline Phosphatase 283 U/L (38-126); Aspartate Aminotransferase 282 IU/L (17-59); Blood Urea Nitrogen 67 mg/dL (9-20); Calcium 6.9 mg/dL (8.4-10.2); Carbon Dioxide 14 mmol/L (22-32); Chloride 77 mmol/L (98-107); Globulin 3.1 g/dL (1.7-4.1); Glucose 77 mg/dL (70-100); Potassium 4.7 mmol/L (3.4-5.1); Total Protein 5.8 g/dL (6.3-8.2)
[2024-01-09 14:25] LABS: Sodium 106 mmol/L (137-145)
[2024-01-09 14:28] LABS: Bilirubin Total 27.1 mg/dL (0.2-1.3)
[2024-01-09 14:39] LABS: BUN Creatinine Ratio 10.7 (6-22); Estimated Glomerular Filt Rate 10 mL/min (>60)
[2024-01-09] MEDS: SODIUM CHLORIDE 3 % 100 ML 600 ML IV (15:09)
[2024-01-09] MEDS: MIDAZOLAM 5 MG/ML VIAL 1 MG IV (16:14)
--- NOTE | 2024-01-09 16:57 | PC.NURSE ---
Pt unable to follow commands to sip water; MD notified. MD stated to try to do NG tube to administer medication.
[2024-01-09] MEDS: LACTULOSE 20 GM/30 ML SOLUTION PO (17:24)
--- NOTE | 2024-01-09 18:19 | PC.NURSE ---
GCS 14; yellow sclera; pupils 2mm reactive. Pt oriented to place and person.
== END 2024-01-09 18:54 | disposition short-term general hospital (02) ==
PROVIDERS: Emergency Provider Emergency Medicine
DX: K76.82 Hepatic encephalopathy (principal); E87.1 Hypo-osmolality and hyponatremia; F10.11 Alcohol abuse, in remission; K76.7 Hepatorenal syndrome; R41.82 Altered mental status, unspecified
CPT/HCPCS: 36415; 36569; 70450; 74176; 80053; 80305; 80320; 81001; 82140; 83605; 83690; 85025; 85610; 87040; 87086; 93005; 96365; 99285; 99291; J0696; J2250